=== PATIENT | female | born 1965 | race American Indian/Alaskan Native ===

== ENCOUNTER 2017-12-07 18:34 | Emergency (ER) | payer SELFPAY ==
[2017-12-07] MEDS ORDERED: ASPIRIN PO ONE (19:53)
[2017-12-07 20:29] LABS: Basophils % (Auto) 0.9 % (0.0-1.8); Eosinophils % (Auto) 1.1 % (0.0-4.3); Hematocrit 35.5 % (30.3-42.9); Hemoglobin 11.6 gm/dl (10.1-14.3); Lymphocytes # (Auto) 1.1 K/mm3 (1.2-5.4); Lymphocytes % (Auto) 25.2 % (13.4-35.0); Mean Corpuscular HGB Conc 33 % (30-34); Mean Corpuscular Volume 79 fl (79-97); Monocytes # (Auto) 0.7 K/mm3 (0.0-0.8); Monocytes % (Auto) 14.9 % (0.0-7.3); Platelet Count 222 K/mm3 (140-440); Red Blood Count 4.49 M/mm3 (3.65-5.03); Red Cell Distribution Width 15.4 % (13.2-15.2)
[2017-12-07 20:33] LABS: Mean Corpuscular Hemoglobin 26 pg (28-32)
[2017-12-07] MEDS ORDERED: TYLENOL PO ONE (20:53)
--- NOTE | 2017-12-07 20:53 | Emergency Department Report ---
ED Shortness of Breath HPI - General Chief Complaint: Upper Respiratory Infection Stated Complaint: FLU LIKE SYMPTOMS Time Seen by Provider: 12/07/17 20:28 Source: patient Mode of arrival: Ambulatory Limitations: No Limitations - History of Present Illness Initial Comments: Patient is 51 years old female history of hypertension and brain aneurysm. Presented to the ER with 3 day history of cough and shortness of breath and fever. Patient stated that her grandson son has same symptoms few days ago. She denied any chest pain, no nausea no vomiting no diarrhea. MD Complaint: shortness of breath, cough -: days(s) Severity: moderate Context: recent URI Associated Symptoms: fever, cough Treatments Prior to Arrival: none - Related Data Allergies Allergy/AdvReac Type Severity Reaction Status Date / Time aspirin Allergy Hives Verified 12/07/17 19:51 ED Review of Systems ROS: Stated complaint: FLU LIKE SYMPTOMS Other details as noted in HPI Comment: All other systems reviewed and negative Constitutional: chills, fever Respiratory: cough, shortness of breath, SOB with exertion, SOB at rest. denies : orthopnea, wheezing Cardiovascular: palpitations. denies: chest pain Gastrointestinal: denies: abdominal pain, nausea, vomiting, diarrhea, constipation, hematemesis Genitourinary: denies: urgency, dysuria, frequency Skin: denies: rash Neurological: denies: headache, weakness, numbness, paresthesias, confusion, abnormal gait ED Past Medical Hx - Past Medical History Previous Medical History?: Yes Hx Hypertension: Yes Hx CVA: Yes Hx Headaches / Migraines: Yes Additional medical history: CHF - Surgical History Past Surgical History?: Yes Hx Coronary Stent: Yes Additional Surgical History: thyroid removal - Social History Smoking Status: Current Every Day Smoker Substance Use Type: None ED Physical Exam - General Limitations: No Limitations General appearance: alert, in no apparent distress - Head Head exam: Present: atraumatic, normocephalic, normal inspection - Eye Eye exam: Present: normal appearance, PERRL - ENT ENT exam: Present: normal exam, normal orophraynx, mucous membranes moist - Neck Neck exam: Present: normal inspection, full ROM. Absent: tenderness, meningismus, lymphadenopathy, thyromegaly - Respiratory Respiratory exam: Present: normal lung sounds bilaterally. Absent: respiratory distress, wheezes, rales, rhonchi, stridor, chest wall tenderness, accessory muscle use, decreased breath sounds, prolonged expiratory - Cardiovascular Cardiovascular Exam: Present: regular rate, normal rhythm, normal heart sounds - GI/Abdominal GI/Abdominal exam: Present: soft, normal bowel sounds. Absent: distended, tenderness, guarding, rebound, rigid, organomegaly, mass, bruit, pulsatile mass , hernia - Extremities Exam Extremities exam: Present: normal inspection, full ROM, normal capillary refill - Back Exam Back exam: Present: normal inspection, full ROM. Absent: tenderness, CVA tenderness (R), CVA tenderness (L), muscle spasm, paraspinal tenderness, vertebral tenderness - Neurological Exam Neurological exam: Present: alert, oriented X3, CN II-XII intact, normal gait, reflexes normal. Absent: motor sensory deficit - Skin Skin exam: Present: warm, intact, normal color. Absent: cyanosis, diaphoretic, erythema ED Course Vital Signs 12/07/17 12/07/17 12/07/17 19:46 21:30 22:02 Temperature 101.3 F H Pulse Rate 105 H 103 H Respiratory 19 19 18 Rate Blood Pressure 162/95 142/88 O2 Sat by Pulse 97 98 Oximetry 12/07/17 22:03 Temperature 101.3 F H Pulse Rate Respiratory Rate Blood Pressure O2 Sat by Pulse Oximetry - Reevaluation(s) Reevaluation #1: 12/07/17 23:21 Patient stated that she is feeling much better. Vital signs stable with an oxygen saturation of 98% on room air. Patient had influenza B test is positive treated his Tamiflu here in the ER. Provided prescription for Tamiflu for the next 5 days and advised patient to follow-up with a primary care physician in the next 2-3 days. I also advised the patient to return to the ER if symptoms and are not improving or getting worse. ED Medical Decision Making - Lab Data Result diagrams: 12/07/17 20:17 12/07/17 20:17 - EKG Data -: EKG Interpreted by Me EKG shows normal: sinus rhythm Rate: tachycardia - EKG Data Interpretation: no acute changes - Radiology Data Radiology results: report reviewed - Medical Decision Making Referring Physician: DAGMAR VILLAFUERTE Patient Name: WILLA MARTINEZ Date of : 1965 Sex: Female Report Date: 2017-12-07 Report Status: Finalized Findings [facility] [address] [place] [address] XRay Report Signed Patient: WILLA MARTINEZ MR#: [id number] : 1965 Acct:[id number] Age/Sex: 51 / F ADM Date: 12/07/17 Loc: ED Attending Dr: Ordering Physician: DAGMAR VILLAFUERTE Date of Service: 12/07/17 Procedure(s): XR chest routine 2V Accession Number(s): [id number] cc: DAGMAR VILLAFUERTE Fluoro Time In Minutes: FINAL REPORT PROCEDURE: XR CHEST ROUTINE 2V TECHNIQUE: PA and lateral chest radiographs were obtained. CPT 91433 HISTORY: shortness of breath COMPARISON: No prior studies are available for comparison. FINDINGS: Heart: Borderline enlarged.. Mediastinum/Vessels: Normal. Lungs/Pleural space: There are faint multifocal infiltrates bilaterally. Lungs are well-expanded. There is no effusion or pneumothorax.. Bony thorax: No acute osseous abnormality. Other: IMPRESSION: Heart is borderline enlarged. There are faint multifocal infiltrates bilaterally. Lungs are well-expanded. There is no effusion or pneumothorax.. Transcribed By: CO Dictated By: TAMARA DSOUZA MD Electronically Authenticated By: TAMARA DSOUZA MD Signed Date/Time: 12/07/171723 DD/ 23 TD/TT: 12/07/171723 Critical care attestation.: If time is entered above; I have spent that time in minutes in the direct care of this critically ill patient, excluding procedure time. ED Disposition Clinical Impression: Shortness of breath, Influenza Disposition: DC-01 TO HOME OR SELFCARE Is pt being admited?: No Condition: Stable Instructions: Influenza (ED)
[2017-12-07 20:55] LABS: BUN/Creatinine Ratio 11; Blood Urea Nitrogen 8 mg/dL (7-17); Calcium 8.5 mg/dL (8.4-10.2); Hemolysis Index 10
[2017-12-07 21:10] LABS: Chol/HDL Ratio 3.53 %
--- NOTE | 2017-12-07 21:26 | XRay Report ---
FINAL REPORT PROCEDURE: XR CHEST ROUTINE 2V TECHNIQUE: PA and lateral chest radiographs were obtained. CPT 02946 HISTORY: shortness of breath COMPARISON: No prior studies are available for comparison. FINDINGS: Heart: Borderline enlarged.. Mediastinum/Vessels: Normal. Lungs/Pleural space: There are faint multifocal infiltrates bilaterally. Lungs are well-expanded. There is no effusion or pneumothorax.. Bony thorax: No acute osseous abnormality. Other: IMPRESSION: Heart is borderline enlarged. There are faint multifocal infiltrates bilaterally. Lungs are well-expanded. There is no effusion or pneumothorax..
[2017-12-07 22:03] VITALS: BP 142/88
[2017-12-07] MEDS ORDERED: TORADOL ONE (22:20)
[2017-12-07] MEDS ORDERED: TORADOL IV ONE (22:22)
[2017-12-07] MEDS ORDERED: TAMIFLU PO ONE (23:00)
== END 2017-12-08 01:19 | disposition home or self-care (01) ==
LOC: ED 18:34
DX: J11.1 Influenza due to unidentified influenza virus with other respiratory manifestations (principal); R06.02 Shortness of breath; I11.0 Hypertensive heart disease with heart failure; I50.9 Heart failure, unspecified; G43.909 Migraine, unspecified, not intractable, without status migrainosus; F17.200 Nicotine dependence, unspecified, uncomplicated; E89.0 Postprocedural hypothyroidism; Z88.6 Allergy status to analgesic agent
CPT/HCPCS: 36415; 71046; 80048; 80061; 82140; 84484; 85025; 87040; 87400; 93005; 93010; 96374; 99284; J1885

== ENCOUNTER 2018-01-01 01:59 | Emergency (ER) | payer SELFPAY ==
[2018-01-01 03:28] LABS: Basophils # (Auto) 0.1 K/mm3 (0.0-0.1); Basophils % (Auto) 0.9 % (0.0-1.8); Eosinophils # (Auto) 0.2 K/mm3 (0.0-0.4); Eosinophils % (Auto) 2.2 % (0.0-4.3); Hematocrit 33.4 % (30.3-42.9); Lymphocytes # (Auto) 2.9 K/mm3 (1.2-5.4); Lymphocytes % (Auto) 37.6 % (13.4-35.0); Mean Corpuscular HGB Conc 33 % (30-34); Mean Corpuscular Hemoglobin 26 pg (28-32); Mean Corpuscular Volume 79 fl (79-97); Monocytes # (Auto) 0.6 K/mm3 (0.0-0.8); Monocytes % (Auto) 8.2 % (0.0-7.3); Platelet Count 227 K/mm3 (140-440); Red Cell Distribution Width 15.2 % (13.2-15.2)
[2018-01-01 03:39] LABS: BUN/Creatinine Ratio 17; Blood Urea Nitrogen 10 mg/dL (7-17); Calcium 8.7 mg/dL (8.4-10.2); Hemolysis Index 4
[2018-01-01 03:50] LABS: INR 1.05 (0.87-1.13)
[2018-01-01 03:51] LABS: Partial Thromboplastin Time 29.1 Sec. (24.2-36.6)
--- NOTE | 2018-01-01 03:52 | XRay Report ---
FINAL REPORT PROCEDURE: XR CHEST ROUTINE 2V TECHNIQUE: PA and lateral chest radiographs were obtained. CPT 85391 HISTORY: Shortness of breath COMPARISON: 12/07/2017 FINDINGS: Heart: The heart is enlarged. Mediastinum/Vessels: Normal. Lungs/Pleural space: Lungs are moderately well-expanded. There is pulmonary vascular congestion and mild pulmonary edema. There are no infiltrates, effusions or pneumothoraces.. Bony thorax: No acute osseous abnormality. Other: IMPRESSION: The heart is enlarged. Lungs are moderately well-expanded. There is pulmonary vascular congestion and mild pulmonary edema. There are no infiltrates, effusions or pneumothoraces.. .
--- NOTE | 2018-01-01 06:18 | Emergency Department Report ---
ED General Adult HPI - General Chief complaint: Dyspnea/Respdistress Stated complaint: SOB Time Seen by Provider: 01/01/18 06:04 Source: patient Mode of arrival: Ambulatory Limitations: No Limitations - History of Present Illness Initial comments: Ms. Lopes is a pleasant female with hx of CHF. She presents with cough and nasal congestion. She was evaluated in the ED two weeks prior. She was given Tamiflu and guafenesin with codeine. She still has a deep cough. Mild pedal edema. She is taking "high dose" diuretics. No chest pain. +subjective fever with sweats. No dx of COPD in spite hx of tobacco use. Mrs. Lopes was formerly a patient of the [facility]. 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 -: week(s) (2) Severity scale (0 -10): 5 Worsens with: other (cough worsens with inspiration, ) Associated Symptoms: other (deep cough causes bladder and fecal incontinence) - Related Data Previous Rx's Medication Instructions Recorded Last Taken Type Oseltamivir [Tamiflu] 75 mg PO BID #10 cap 12/07/17 Unknown Rx guaiFENesin/CODEINE [Robitussin AC] 10 ml PO TID PRN #100 ml 12/07/17 Unknown Rx ALBUTEROL Inhaler [ProAir HFA 2 puff IH QID PRN #1 device 01/01/18 Unknown Rx Inhaler] Doxycycline Hyclate [Doxycycline 100 mg PO Q12HR 10 Days #20 tab 01/01/18 Unknown Rx Hyclate TAB] Prednisone [predniSONE 10 mg 10 mg PO .TAPER #1 tab.ds.pk 01/01/18 Unknown Rx (6-Day Pack, 21 Tabs)] Allergies Allergy/AdvReac Type Severity Reaction Status Date / Time aspirin Allergy Hives Verified 12/07/17 19:51 ED Review of Systems ROS: Stated complaint: SOB Other details as noted in HPI Comment: All other systems reviewed and negative ED Past Medical Hx - Past Medical History Previous Medical History?: Yes Hx Hypertension: Yes Hx CVA: Yes (2015) Hx Congestive Heart Failure: Yes Hx Headaches / Migraines: Yes Additional medical history: brain aneurysm x2 - Surgical History Past Surgical History?: Yes Hx Coronary Stent: Yes Additional Surgical History: thyroid removal, open heart sx 1971 - Social History Smoking Status: Current Every Day Smoker Substance Use Type: None - Medications Home Medications: Home Medications Medication Instructions Recorded Confirmed Last Taken Type Oseltamivir [Tamiflu] 75 mg PO BID #10 cap 12/07/17 Unknown Rx guaiFENesin/CODEINE [Robitussin AC] 10 ml PO TID PRN #100 ml 12/07/17 Unknown Rx ALBUTEROL Inhaler [ProAir HFA 2 puff IH QID PRN #1 device 01/01/18 Unknown Rx Inhaler] Doxycycline Hyclate [Doxycycline 100 mg PO Q12HR 10 Days #20 tab 01/01/18 Unknown Rx Hyclate TAB] Prednisone [predniSONE 10 mg 10 mg PO .TAPER #1 tab.ds.pk 01/01/18 Unknown Rx (6-Day Pack, 21 Tabs)] ED Physical Exam - General Limitations: No Limitations General appearance: alert, in no apparent distress, other (frequent cough noted) - Head Head exam: Present: atraumatic, normocephalic - Eye Eye exam: Present: normal appearance - ENT ENT exam: Present: normal orophraynx, mucous membranes moist - Neck Neck exam: Present: normal inspection. Absent: meningismus - Respiratory Respiratory exam: Present: normal lung sounds bilaterally, rales. Absent: respiratory distress, wheezes, rhonchi, stridor - Cardiovascular Cardiovascular Exam: Present: regular rate, normal rhythm, normal heart sounds. Absent: bradycardia, tachycardia, systolic murmur, diastolic murmur, rubs, gallop - GI/Abdominal GI/Abdominal exam: Present: soft, normal bowel sounds. Absent: distended, tenderness, guarding, rebound - Extremities Exam Extremities exam: Present: normal inspection. Absent: pedal edema - Back Exam Back exam: Present: normal inspection - Neurological Exam Neurological exam: Present: alert, oriented X3 - Psychiatric Psychiatric exam: Present: normal affect, normal mood - Skin Skin exam: Present: warm, dry, intact, normal color. Absent: rash ED Course Vital Signs 01/01/18 01/01/18 01/01/18 02:59 03:21 03:28 Temperature 98.2 F 98.2 F Pulse Rate 98 H 100 H 103 H Respiratory 18 17 20 Rate Blood Pressure 168/86 Blood Pressure 148/86 [Left] O2 Sat by Pulse 98 75 L 96 Oximetry 01/01/18 01/01/18 01/01/18 03:30 03:46 04:00 Temperature Pulse Rate 104 H 91 H 94 H Respiratory 24 18 20 Rate Blood Pressure 148/86 148/86 148/86 Blood Pressure [Left] O2 Sat by Pulse 80 L 97 97 Oximetry 01/01/18 01/01/18 01/01/18 04:16 04:30 04:46 Temperature Pulse Rate 103 H 94 H 97 H Respiratory 20 26 H 31 H Rate Blood Pressure 148/86 148/86 148/86 Blood Pressure [Left] O2 Sat by Pulse 95 94 96 Oximetry 01/01/18 01/01/18 01/01/18 05:08 05:16 05:30 Temperature Pulse Rate Respiratory Rate Blood Pressure 148/86 148/86 148/86 Blood Pressure [Left] O2 Sat by Pulse 99 95 95 Oximetry 01/01/18 01/01/18 01/01/18 05:46 06:00 06:16 Temperature Pulse Rate Respiratory Rate Blood Pressure 148/86 148/86 148/86 Blood Pressure [Left] O2 Sat by Pulse 97 95 99 Oximetry 01/01/18 01/01/18 01/01/18 06:30 06:46 07:33 Temperature 98 F Pulse Rate 93 H Respiratory 22 Rate Blood Pressure 148/86 150/90 Blood Pressure 150/91 [Left] O2 Sat by Pulse 97 99 97 Oximetry 01/01/18 01/01/18 07:36 07:46 Temperature Pulse Rate 95 H 103 H Respiratory 25 H 17 Rate Blood Pressure 150/90 163/94 Blood Pressure [Left] O2 Sat by Pulse Oximetry ED Medical Decision Making - Lab Data Result diagrams: 01/01/18 03:14 01/01/18 03:14 Laboratory Results - last 24 hr 01/01/18 01/01/18 01/01/18 03:14 03:14 03:14 WBC RBC Hgb Hct MCV MCH MCHC RDW Plt Count Lymph % (Auto) [place] % (Auto) Eos % (Auto) Baso % (Auto) Lymph # [place] # Eos # Baso # Seg Neutrophils % Seg Neutrophils # PT 14.2 INR 1.05 APTT 29.1 Sodium 143 Potassium 4.0 Chloride 104.4 Carbon Dioxide 28 Anion Gap 15 BUN 10 Creatinine 0.6 L Estimated GFR > 60 BUN/Creatinine Ratio 17 Glucose 109 H Calcium 8.7 NT-Pro-B Natriuret Pep HCG, Qual Negative 01/01/18 01/01/18 03:14 03:14 WBC 7.7 RBC 4.20 Hgb 11.0 Hct 33.4 MCV 79 MCH 26 L MCHC 33 RDW 15.2 Plt Count 227 Lymph % (Auto) 37.6 H [place] % (Auto) 8.2 H Eos % (Auto) 2.2 Baso % (Auto) 0.9 Lymph # 2.9 [place] # 0.6 Eos # 0.2 Baso # 0.1 Seg Neutrophils % 51.1 Seg Neutrophils # 3.9 PT INR APTT Sodium Potassium Chloride Carbon Dioxide Anion Gap BUN Creatinine Estimated GFR BUN/Creatinine Ratio Glucose Calcium NT-Pro-B Natriuret Pep 491.6 HCG, Qual Vital Signs - 24 hr 01/01/18 01/01/18 01/01/18 02:59 03:21 03:28 Temperature 98.2 F 98.2 F Pulse Rate 98 H 100 H 103 H Respiratory 18 17 20 Rate Blood Pressure 168/86 Blood Pressure 148/86 [Left] O2 Sat by Pulse 98 75 L 96 Oximetry - EKG Data -: EKG Interpreted by Me - EKG Data 01/01/18 06:19 EKG obtained a 254 Normal sinus rhythm rate of 90 bpm normal axis normal intervals no ST-T signs of ischemia - Radiology Data Radiology results: report reviewed Mild pulmonary vascular congestion without infiltrate - Medical Decision Making Mrs. Lopes presents with acute bronchitis after influenza without signs of pneumonia. She also has mild CHF exacerbation according to lung exam and chest x-ray. She received IV furosemide, DuoNeb prednisone and doxycycline ED. I will prescribe: Combivent MDI, prednisone, doxycycline. Considering severe symptoms and tobacco abuse, antibiotics are indicated in this scenario of acute bronchitis. Critical care attestation.: If time is entered above; I have spent that time in minutes in the direct care of this critically ill patient, excluding procedure time. ED Disposition Clinical Impression: Acute bronchitis, Acute exacerbation of CHF (congestive heart failure) Disposition: TO HOME OR SELFCARE Is pt being admited?: No Does the pt Need Aspirin: No Condition: Stable Instructions: How to Stop Smoking (ED), Acute Bronchitis (ED) Prescriptions: ALBUTEROL Inhaler [ProAir HFA Inhaler] 2 puff IH QID PRN #1 device PRN Reason: Shortness Of Breath Doxycycline Hyclate [Doxycycline Hyclate TAB] 100 mg PO Q12HR 10 Days #20 tab Prednisone [predniSONE 10 mg (6-Day Pack, 21 Tabs)] 10 mg PO .TAPER #1 tab.ds.pk Referrals: TAYLOR GELLER MD [Primary Care Provider] - 3-5 Days [facility] [Outside] - 3-5 Days Time of Disposition: 09:00
[2018-01-01] MEDS ORDERED: VIBRAMYCIN PO ONE (06:22)
[2018-01-01] MEDS ORDERED: DUONEB *Not for PRN Use IH ONE (06:22)
[2018-01-01] MEDS ORDERED: LASIX IV ONE (06:22)
[2018-01-01] MEDS ORDERED: DELTASONE PO ONE (06:22)
[2018-01-01 09:23] VITALS: BP 154/96
== END 2018-01-01 09:24 | disposition home or self-care (01) ==
LOC: ED 01:59
DX: J20.9 Acute bronchitis, unspecified (principal); I50.9 Heart failure, unspecified; I10 Essential (primary) hypertension; Z86.73 Personal history of transient ischemic attack (TIA), and cerebral infarction without residual deficits; G43.909 Migraine, unspecified, not intractable, without status migrainosus; F17.200 Nicotine dependence, unspecified, uncomplicated; Z88.6 Allergy status to analgesic agent; Z95.818 Presence of other cardiac implants and grafts
CPT/HCPCS: 36415; 71046; 80048; 83880; 84703; 85025; 85610; 85730; 93005; 93010; 94640; 96374; 99284; J1940; J7512

== ENCOUNTER 2018-02-06 02:29 | Emergency (ER) | payer SELFPAY ==
[2018-02-06] MEDS ORDERED: DUONEB *Not for PRN Use IH ONE ×2 (03:18→03:34)
[2018-02-06 03:50] LABS: Basophils # (Auto) 0.1 K/mm3 (0.0-0.1); Basophils % (Auto) 1.4 % (0.0-1.8); Eosinophils # (Auto) 0.1 K/mm3 (0.0-0.4); Eosinophils % (Auto) 1.7 % (0.0-4.3); Hematocrit 33.4 % (30.3-42.9); Hemoglobin 11.1 gm/dl (10.1-14.3); Lymphocytes # (Auto) 3.1 K/mm3 (1.2-5.4); Lymphocytes % (Auto) 42.9 % (13.4-35.0); Mean Corpuscular HGB Conc 33 % (30-34); Mean Corpuscular Hemoglobin 26 pg (28-32); Mean Corpuscular Volume 78 fl (79-97); Monocytes # (Auto) 0.5 K/mm3 (0.0-0.8); Monocytes % (Auto) 6.2 % (0.0-7.3); Platelet Count 254 K/mm3 (140-440); Red Blood Count 4.28 M/mm3 (3.65-5.03); Red Cell Distribution Width 15.7 % (13.2-15.2)
--- NOTE | 2018-02-06 04:04 | XRay Report ---
FINAL REPORT PROCEDURE: XR CHEST ROUTINE 2V TECHNIQUE: PA and lateral chest radiographs were obtained. CPT 17747 HISTORY: Shortness of breath COMPARISON: 01/01/2018 FINDINGS: Heart: Heart size is slightly pronounced but stable. Mediastinum/Vessels: Normal. Lungs/Pleural space: There is atelectasis in both lower lungs. Mild vascular congestion.. Bony thorax: No acute osseous abnormality. Other: IMPRESSION: Mild CHF with slight atelectasis bilateral lower lungs.
[2018-02-06 04:07] LABS: BUN/Creatinine Ratio 18; Blood Urea Nitrogen 11 mg/dL (7-17); Calcium 8.8 mg/dL (8.4-10.2); Hemolysis Index 8
[2018-02-06] MEDS ORDERED: LASIX IV ONE (05:07)
--- NOTE | 2018-02-06 05:48 | Emergency Department Report ---
<LAVELLE SAHA - Last Filed: 02/06/18 05:46> ED Shortness of Breath HPI - General Chief Complaint: Dyspnea/Respdistress Stated Complaint: SOB Time Seen by Provider: 02/06/18 04:47 Source: patient Mode of arrival: Ambulatory Limitations: No Limitations - History of Present Illness Initial Comments: Patient is a 52-year-old black female who has a history of asthma and congestive heart failure who is presenting with 6 days of difficulty in breathing. Patient states that she is more short of breath with exertion. Patient states she's had a very mild cough is nonproductive. Patient also states that sometimes she has a little bit of chest discomfort as well she rates his chest discomfort is tightness and has had some wheezing. Patient is out of her albuterol inhaler. Patient does state she is taking all of her other medications at this time. Patient denies any fevers chills nausea vomiting diarrhea. - Related Data Previous Rx's Medication Instructions Recorded Last Taken Type Oseltamivir [Tamiflu] 75 mg PO BID #10 cap 12/07/17 Unknown Rx guaiFENesin/CODEINE [Robitussin AC] 10 ml PO TID PRN #100 ml 12/07/17 Unknown Rx Doxycycline Hyclate [Doxycycline 100 mg PO Q12HR 10 Days #20 tab 01/01/18 Unknown Rx Hyclate TAB] ALBUTEROL Inhaler [ProAir HFA 2 puff IH QID PRN #1 device 02/06/18 Unknown Rx Inhaler] Clopidogrel [Plavix] 75 mg PO QDAY #30 tablet 02/06/18 Unknown Rx Metoprolol [Lopressor TAB] 50 mg PO BID #60 tablet 02/06/18 Unknown Rx predniSONE [Deltasone] 40 mg PO QDAY 5 Days tab 02/06/18 Unknown Rx Allergies Allergy/AdvReac Type Severity Reaction Status Date / Time aspirin Allergy Hives Verified 12/07/17 19:51 ED Review of Systems ROS: Stated complaint: SOB Other details as noted in HPI Comment: All other systems reviewed and negative ED Past Medical Hx - Past Medical History Hx Hypertension: Yes Hx CVA: Yes (2015) Hx Congestive Heart Failure: Yes Hx Headaches / Migraines: Yes Additional medical history: brain aneurysm x2 - Surgical History Hx Coronary Stent: Yes Additional Surgical History: thyroid removal, open heart sx 1971 - Social History Smoking Status: Current Every Day Smoker Substance Use Type: None - Medications Home Medications: Home Medications Medication Instructions Recorded Confirmed Last Taken Type Oseltamivir [Tamiflu] 75 mg PO BID #10 cap 12/07/17 Unknown Rx guaiFENesin/CODEINE [Robitussin AC] 10 ml PO TID PRN #100 ml 12/07/17 Unknown Rx Doxycycline Hyclate [Doxycycline 100 mg PO Q12HR 10 Days #20 tab 01/01/18 Unknown Rx Hyclate TAB] ALBUTEROL Inhaler [ProAir HFA 2 puff IH QID PRN #1 device 02/06/18 Unknown Rx Inhaler] Clopidogrel [Plavix] 75 mg PO QDAY #30 tablet 02/06/18 Unknown Rx Metoprolol [Lopressor TAB] 50 mg PO BID #60 tablet 02/06/18 Unknown Rx predniSONE [Deltasone] 40 mg PO QDAY 5 Days tab 02/06/18 Unknown Rx ED Physical Exam - General Limitations: No Limitations General appearance: alert, in no apparent distress - Head Head exam: Present: atraumatic, normocephalic - Eye Eye exam: Present: normal appearance - ENT ENT exam: Present: mucous membranes moist - Neck Neck exam: Present: normal inspection - Respiratory Respiratory exam: Present: normal lung sounds bilaterally, rales. Absent: respiratory distress, wheezes, rhonchi - Cardiovascular Cardiovascular Exam: Present: regular rate, normal rhythm. Absent: systolic murmur, diastolic murmur, rubs, gallop - GI/Abdominal GI/Abdominal exam: Present: soft, normal bowel sounds. Absent: distended, tenderness, guarding, rebound - Extremities Exam Extremities exam: Present: normal inspection - Back Exam Back exam: Present: normal inspection - Neurological Exam Neurological exam: Present: alert, oriented X3 - Psychiatric Psychiatric exam: Present: normal affect, normal mood - Skin Skin exam: Present: warm, dry, intact, normal color. Absent: rash ED Course Vital Signs 02/06/18 02/06/18 02/06/18 03:26 05:05 05:30 Temperature 98.6 F 97.9 F Pulse Rate 54 L 94 H Respiratory 20 22 Rate Blood Pressure 133/91 139/99 Blood Pressure 155/103 [Right] O2 Sat by Pulse 98 99 99 Oximetry ED Medical Decision Making - Lab Data Result diagrams: 02/06/18 03:38 02/06/18 03:38 Lab Results 02/06/18 02/06/18 02/06/18 Range/Units 03:38 03:38 03:38 WBC 7.3 (4.5-11.0) K/mm3 RBC 4.28 (3.65-5.03) M/mm3 Hgb 11.1 (10.1-14.3) gm/dl Hct 33.4 (30.3-42.9) % MCV 78 L (79-97) fl MCH 26 L (28-32) pg MCHC 33 (30-34) % RDW 15.7 H (13.2-15.2) % Plt Count 254 (140-440) K/mm3 Lymph % (Auto) 42.9 H (13.4-35.0) % [place] % (Auto) 6.2 (0.0-7.3) % Eos % (Auto) 1.7 (0.0-4.3) % Baso % (Auto) 1.4 (0.0-1.8) % Lymph # 3.1 (1.2-5.4) K/mm3 [place] # 0.5 (0.0-0.8) K/mm3 Eos # 0.1 (0.0-0.4) K/mm3 Baso # 0.1 (0.0-0.1) K/mm3 Seg Neutrophils % 47.8 (40.0-70.0) % Seg Neutrophils # 3.5 (1.8-7.7) K/mm3 Sodium 142 (137-145) mmol/L Potassium 4.0 (3.6-5.0) mmol/L Chloride 103.2 (98-107) mmol/L Carbon Dioxide 27 (22-30) mmol/L Anion Gap 16 mmol/L BUN 11 (7-17) mg/dL Creatinine 0.6 L (0.7-1.2) mg/dL Estimated GFR > 60 ml/min BUN/Creatinine Ratio 18 % Glucose 104 H (65-100) mg/dL Calcium 8.8 (8.4-10.2) mg/dL Troponin T < 0.010 (0.00-0.029) ng/mL NT-Pro-B Natriuret Pep (0-900) pg/mL HCG, Qual Negative (Negative) 02/06/18 Range/Units 03:38 WBC (4.5-11.0) K/mm3 RBC (3.65-5.03) M/mm3 Hgb (10.1-14.3) gm/dl Hct (30.3-42.9) % MCV (79-97) fl MCH (28-32) pg MCHC (30-34) % RDW (13.2-15.2) % Plt Count (140-440) K/mm3 Lymph % (Auto) (13.4-35.0) % [place] % (Auto) (0.0-7.3) % Eos % (Auto) (0.0-4.3) % Baso % (Auto) (0.0-1.8) % Lymph # (1.2-5.4) K/mm3 [place] # (0.0-0.8) K/mm3 Eos # (0.0-0.4) K/mm3 Baso # (0.0-0.1) K/mm3 Seg Neutrophils % (40.0-70.0) % Seg Neutrophils # (1.8-7.7) K/mm3 Sodium (137-145) mmol/L Potassium (3.6-5.0) mmol/L Chloride (98-107) mmol/L Carbon Dioxide (22-30) mmol/L Anion Gap mmol/L BUN (7-17) mg/dL Creatinine (0.7-1.2) mg/dL Estimated GFR ml/min BUN/Creatinine Ratio % Glucose (65-100) mg/dL Calcium (8.4-10.2) mg/dL Troponin T (0.00-0.029) ng/mL NT-Pro-B Natriuret Pep 803.1 (0-900) pg/mL HCG, Qual (Negative) - EKG Data -: EKG Interpreted by [place] - EKG Data Interpretation: other (EKG shows sinus rhythm rate of 92 mile axis normal and also notice ST segment elevations or depressions time of interpretation is 354) - Radiology Data Radiology results: report reviewed Chest x-ray shows changes consistent with a mild CHF exacerbation - Medical Decision Making Patient is a 52-year-old female who presents with shortness of breath. Patient received a nebulizer treatment at triage states her shortness of breath slightly improved. On my initial exam patient does have some rails was given a dose of Lasix will be reevaluated Critical care attestation.: If time is entered above; I have spent that time in minutes in the direct care of this critically ill patient, excluding procedure time. ED Disposition Clinical Impression: Asthma exacerbation, CHF exacerbation, Medicine refill, Obesity Disposition: DC-01 TO HOME OR SELFCARE Condition: Stable Instructions: Asthma (ED), Heart Failure (ED) Additional Instructions: Take the medication as prescribed and return if symptoms worsen. Follow up with your primary care doctor or the doctor provided Prescriptions: ALBUTEROL Inhaler [ProAir HFA Inhaler] 2 puff IH QID PRN #1 device PRN Reason: Shortness Of Breath Clopidogrel [Plavix] 75 mg PO QDAY #30 tablet Metoprolol [Lopressor TAB] 50 mg PO BID #60 tablet predniSONE [Deltasone] 40 mg PO QDAY 5 Days tab Referrals: TAYLOR GELLER MD [Primary Care Provider] - 3-5 Days [facility] [Provider Group] - 3-5 Days (medical clinic) <VIKI LAU - Last Filed: 02/06/18 07:07> ED Medical Decision Making - Lab Data Result diagrams: 02/06/18 03:38 02/06/18 03:38 - Medical Decision Making Received signout from Dr. Saha is to reassess patient after IV Lasix. Patient had multiple episodes of diuresis. Patient states she is feeling better and no longer complains of shortness of breath and tolerates exertion. Patient requesting a refill in her metoprolol 50 mg twice a day, albuterol inhaler, and Plavix. She states she has Lasix at home. steroids for asthma exacerbation will be provided ED Disposition Is pt being admited?: No Does the pt Need Aspirin: No Time of Disposition: 07:06
[2018-02-06 05:49] VITALS: BP 139/99
== END 2018-02-06 07:20 | disposition home or self-care (01) ==
LOC: ED 02:29
DX: J45.901 Unspecified asthma with (acute) exacerbation (principal); I11.0 Hypertensive heart disease with heart failure; I50.9 Heart failure, unspecified; G43.909 Migraine, unspecified, not intractable, without status migrainosus; F17.200 Nicotine dependence, unspecified, uncomplicated; E89.0 Postprocedural hypothyroidism; E66.9 Obesity, unspecified; Z68.42 Body mass index [BMI] 45.0-49.9, adult; Z95.818 Presence of other cardiac implants and grafts; Z88.6 Allergy status to analgesic agent
CPT/HCPCS: 36415; 71046; 80048; 83880; 84484; 84703; 85025; 93005; 93010; 94640; 96374; 99284; J1940

== ENCOUNTER 2018-03-03 03:35 | Emergency (ER) | payer SELFPAY ==
[2018-03-03 03:47] VITALS: BP 153/92
[2018-03-03] MEDS ORDERED: DUONEB *Not for PRN Use IH ONE (04:54)
--- NOTE | 2018-03-03 05:32 | XRay Report ---
FINAL REPORT PROCEDURE: XR CHEST ROUTINE 2V TECHNIQUE: PA and lateral chest radiographs were obtained. CPT 57167 HISTORY: shortness of breath COMPARISON: 02/06/2018 FINDINGS: Heart: Normal. Mediastinum/Vessels: Normal. Lungs/Pleural space: Mild vascular congestion with slight atelectasis bilateral lower lungs. No effusion or pneumothorax. Bony thorax: No acute osseous abnormality. Other: IMPRESSION: Mild vascular congestion with slight atelectasis in the bilateral lower lungs..
[2018-03-03 06:04] LABS: Basophils % (Auto) 0.4 % (0.0-1.8); Eosinophils # (Auto) 0.1 K/mm3 (0.0-0.4); Eosinophils % (Auto) 1.1 % (0.0-4.3); Hematocrit 33.9 % (30.3-42.9); Hemoglobin 11.1 gm/dl (10.1-14.3); Lymphocytes # (Auto) 3.5 K/mm3 (1.2-5.4); Lymphocytes % (Auto) 40.6 % (13.4-35.0); Mean Corpuscular HGB Conc 33 % (30-34); Mean Corpuscular Hemoglobin 26 pg (28-32); Mean Corpuscular Volume 80 fl (79-97); Monocytes # (Auto) 0.7 K/mm3 (0.0-0.8); Monocytes % (Auto) 8.3 % (0.0-7.3); Platelet Count 239 K/mm3 (140-440); Red Blood Count 4.25 M/mm3 (3.65-5.03)
[2018-03-03 06:05] LABS: INR 1.05 (0.87-1.13)
[2018-03-03 06:06] LABS: BUN/Creatinine Ratio 15; Blood Urea Nitrogen 9 mg/dL (7-17); Calcium 8.9 mg/dL (8.4-10.2); Hemolysis Index 1; Partial Thromboplastin Time 26.9 Sec. (24.2-36.6)
== END 2018-03-03 07:10 | disposition left against medical advice (07) ==
LOC: ED 03:35
DX: R06.02 Shortness of breath (principal); Z53.21 Procedure and treatment not carried out due to patient leaving prior to being seen by health care provider
CPT/HCPCS: 36415; 71046; 80048; 84484; 85025; 85610; 85730; 93005; 93010

== ENCOUNTER 2018-03-05 08:50 | Inpatient (IN) | payer OTHER ==
[2018-03-05 09:35] LABS: Basophils % (Auto) 0.7 % (0.0-1.8); Eosinophils # (Auto) 0.1 K/mm3 (0.0-0.4); Eosinophils % (Auto) 1.9 % (0.0-4.3); Hematocrit 34.3 % (30.3-42.9); Hemoglobin 11.2 gm/dl (10.1-14.3); Lymphocytes # (Auto) 2.9 K/mm3 (1.2-5.4); Lymphocytes % (Auto) 43.5 % (13.4-35.0); Mean Corpuscular HGB Conc 33 % (30-34); Mean Corpuscular Hemoglobin 26 pg (28-32); Mean Corpuscular Volume 80 fl (79-97); Monocytes # (Auto) 0.6 K/mm3 (0.0-0.8); Monocytes % (Auto) 9.5 % (0.0-7.3); Platelet Count 234 K/mm3 (140-440); Red Blood Count 4.29 M/mm3 (3.65-5.03); Red Cell Distribution Width 16.9 % (13.2-15.2)
[2018-03-05 09:51] LABS: BUN/Creatinine Ratio 12; Blood Urea Nitrogen 6 mg/dL (7-17); Calcium 8.7 mg/dL (8.4-10.2); Hemolysis Index 27
[2018-03-05] MEDS ORDERED: LASIX IV ONE (10:55)
[2018-03-05] MEDS ORDERED: NITRO-BID 2% TP ONE (10:56)
--- NOTE | 2018-03-05 11:04 | Emergency Department Report ---
ED Shortness of Breath HPI - General Chief Complaint: Dyspnea/Respdistress Stated Complaint: SHORTNESS OF BREATH Time Seen by Provider: 03/05/18 10:48 Source: patient, old records reviewed (no previous admission a cardiac workup on record) Mode of arrival: Ambulatory Limitations: No Limitations - History of Present Illness Initial Comments: 52-year-old female with past medical history CHF, open heart surgery in 1971 for congenital heart defect, previous CVA, hypertension, and brain aneurysm 2 presents to the hospital complains of significantly worsening shortness of breath 1 month. Positive orthopnea PND reported. Patient has intermittent leg ankle swelling. Dry cough reported. No chest pain. Patient's plying with most of her medications but intermittently taking her Lasix because she trying to make the prescription last longer and she doesn't want to have to urinate all the time. Previously patient had [employer] insurance but since she lost insurance she has not followed up with her primary care doctor or side stitcher. Patient was here on March 03 the left prior to M.D. evaluation due to wait. - Related Data Home Medications Medication Instructions Recorded Confirmed Last Taken Furosemide [Lasix] 20 mg PO BID 03/05/18 03/05/18 Unknown Losartan [Cozaar] 50 mg PO QDAY 03/05/18 03/05/18 03/05/18 Previous Rx's Medication Instructions Recorded Last Taken Type ALBUTEROL Inhaler [ProAir HFA 2 puff IH QID PRN #1 device 02/06/18 Unknown Rx Inhaler] Clopidogrel [Plavix] 75 mg PO QDAY #30 tablet 02/06/18 03/05/18 Rx Metoprolol [Lopressor TAB] 50 mg PO BID #60 tablet 02/06/18 Unknown Rx Allergies Allergy/AdvReac Type Severity Reaction Status Date / Time aspirin Allergy Hives Verified 12/07/17 19:51 strawberry Allergy Swelling Verified 03/03/18 04:41 ED Review of Systems ROS: Stated complaint: SHORTNESS OF BREATH Other details as noted in HPI Comment: All other systems reviewed and negative ED Past Medical Hx - Past Medical History Hx Hypertension: Yes Hx CVA: Yes (2015) Hx Congestive Heart Failure: Yes Hx Headaches / Migraines: Yes Additional medical history: brain aneurysm x2 - Surgical History Hx Coronary Stent: Yes Additional Surgical History: thyroid removal, open heart sx 1971 - Social History Smoking Status: Current Every Day Smoker Substance Use Type: None - Medications Home Medications: Home Medications Medication Instructions Recorded Confirmed Last Taken Type ALBUTEROL Inhaler [ProAir HFA 2 puff IH QID PRN #1 device 02/06/18 03/05/18 Unknown Rx Inhaler] Clopidogrel [Plavix] 75 mg PO QDAY #30 tablet 02/06/18 03/05/18 03/05/18 Rx Metoprolol [Lopressor TAB] 50 mg PO BID #60 tablet 02/06/18 03/05/18 Unknown Rx Furosemide [Lasix] 20 mg PO BID 03/05/18 03/05/18 Unknown History Losartan [Cozaar] 50 mg PO QDAY 03/05/18 03/05/18 03/05/18 History ED Physical Exam - General Limitations: No Limitations - Other Other exam information: General: No limitations, patient is alert in no acute distress Head exam: Atraumatic, normocephalic Eyes exam: Normal appearance, pupils equal reactive to light, extraocular movements intact ENT: Moist mucous membrane, normal oropharynx Neck exam: Normal inspection, full range of motion, no meningismus nontender Respiratory exam: Tachypnea, breathlessness with speaking, bilateral crackles Cardiovascular: Normal rate and rhythm, normal heart sounds Abdomen: Soft, nondistended, and nontender, with normal bowel sounds, no rebound, or guarding Extremity: Full range of motion normal inspection no deformity, no calf tenderness Back: Normal Inspection, full range of motion, no tenderness Neurologic: Alert, oriented x3, cranial nerves intact, no motor or sensory deficit Psychiatric: normal affect, normal mood Skin: Warm, dry, intact ED Course Vital Signs 03/05/18 03/05/18 03/05/18 08:57 11:00 11:03 Temperature 97.8 F Pulse Rate 89 99 H 106 H Respiratory 24 17 18 Rate Blood Pressure 140/104 159/111 Blood Pressure [Right] O2 Sat by Pulse 96 99 99 Oximetry 03/05/18 03/05/18 03/05/18 11:30 11:48 12:00 Temperature Pulse Rate 96 H 84 101 H Respiratory 17 22 14 Rate Blood Pressure 168/101 168/101 Blood Pressure 168/84 [Right] O2 Sat by Pulse 98 Oximetry - Consultations Consultation #1: 03/05/18 11:04 Case d/w Mark Aguayo with [facility] heart, will consult ED Medical Decision Making - Lab Data Result diagrams: 03/05/18 09:12 03/05/18 09:12 Lab Results 03/05/18 03/05/18 Range/Units 09:12 09:12 WBC 6.6 (4.5-11.0) K/mm3 RBC 4.29 (3.65-5.03) M/mm3 Hgb 11.2 (10.1-14.3) gm/dl Hct 34.3 (30.3-42.9) % MCV 80 (79-97) fl MCH 26 L (28-32) pg MCHC 33 (30-34) % RDW 16.9 H (13.2-15.2) % Plt Count 234 (140-440) K/mm3 Lymph % (Auto) 43.5 H (13.4-35.0) % [place] % (Auto) 9.5 H (0.0-7.3) % Eos % (Auto) 1.9 (0.0-4.3) % Baso % (Auto) 0.7 (0.0-1.8) % Lymph # 2.9 (1.2-5.4) K/mm3 [place] # 0.6 (0.0-0.8) K/mm3 Eos # 0.1 (0.0-0.4) K/mm3 Baso # 0.0 (0.0-0.1) K/mm3 Seg Neutrophils % 44.4 (40.0-70.0) % Seg Neutrophils # 2.9 (1.8-7.7) K/mm3 Sodium 138 (137-145) mmol/L Potassium 3.8 (3.6-5.0) mmol/L Chloride 102.1 (98-107) mmol/L Carbon Dioxide 27 (22-30) mmol/L Anion Gap 13 mmol/L BUN 6 L (7-17) mg/dL Creatinine 0.5 L (0.7-1.2) mg/dL Estimated GFR > 60 ml/min BUN/Creatinine Ratio 12 % Glucose 110 H (65-100) mg/dL Calcium 8.7 (8.4-10.2) mg/dL NT-Pro-B Natriuret Pep 662.2 (0-900) pg/mL cardiac enzymes neg - EKG Data -: EKG Interpreted by [place] EKG shows normal: sinus rhythm, axis (90), QRS complexes (74), ST-T waves Rate: normal (87) - EKG Data When compared to previous EKG there are: no significant change - Medical Decision Making Acute CHF exacerbation Like he secondary to Lasix noncompliance no Chest pain or EKG changes, cardiac enzymes neg ED treatment includes Lasix 60 mg IV, nitroglycerin paste and, and BiPAP Hospitalist informed of admission - Differential Diagnosis CHF, mild compliance, renal failure, MT, asthma, pneumonia Critical Care Time: No Critical care attestation.: If time is entered above; I have spent that time in minutes in the direct care of this critically ill patient, excluding procedure time. ED Disposition Clinical Impression: CHF exacerbation, Asthma, Obesity, Noncompliance with medication regimen, Hypertension Disposition: OP ADMIT IP TO THIS HOSP Is pt being admited?: Yes Condition: Stable Time of Disposition: 11:06 (Dr Roberts/hosp)
--- NOTE | 2018-03-05 11:05 | XRay Report ---
ROUTINE CHEST, TWO VIEWS: HISTORY: Shortness of breath. Mild cardiomegaly is stable. Pulmonary markings are prominent bilaterally in the lower lung zones. This probably represents pulmonary venous congestion. Infiltrates are thought less likely. No consolidation, pleural effusion or pneumothorax. The bony structures are grossly intact. IMPRESSION: Mild cardiomegaly and pulmonary venous congestion. No significant change since the exam 4 days ago.
[2018-03-05 12:02] LABS: Creatine Kinase MB 1.3 ng/mL (0.0-4.0)
--- NOTE | 2018-03-05 14:30 | Consultation ---
History of Present Illness Consult date: 03/05/18 Consult reason: congestive heart failure History of present illness: This is a 52yr old woman who gives a history of dilated nonischemic cardiomyopathy. Patient reports she underwent a cardiac catheterization 2 years ago at [place] that showed no significant coronary artery disease but a decreased left ventricular ejection fraction 35%. Patient also reports a history of congenital heart disease requiring surgery at the age of 6. She presented to this hospital with complaints of shortness of breath, lower extremity edema, ongoing for several weeks. She denies chest pain and palpitations. There were no reports of syncope. A chest xray reports mild cardiomegaly with mild congestion. Her ECG is a normal sinus rhythm. A cardiac consultation was requested for CHF evaluation. Medications and Allergies Allergies Allergy/AdvReac Type Severity Reaction Status Date / Time aspirin Allergy Hives Verified 12/07/17 19:51 strawberry Allergy Swelling Verified 03/03/18 04:41 Home Medications Medication Instructions Recorded Confirmed Last Taken Type ALBUTEROL Inhaler [ProAir HFA 2 puff IH QID PRN #1 device 02/06/18 03/05/18 Unknown Rx Inhaler] Clopidogrel [Plavix] 75 mg PO QDAY #30 tablet 02/06/18 03/05/18 03/05/18 Rx Metoprolol [Lopressor TAB] 50 mg PO BID #60 tablet 02/06/18 03/05/18 Unknown Rx Furosemide [Lasix] 20 mg PO BID 03/05/18 03/05/18 Unknown History Losartan [Cozaar] 50 mg PO QDAY 03/05/18 03/05/18 03/05/18 History Physical Examination Vital Signs Temp Pulse Resp BP Pulse Ox 97.8 F 89 24 140/104 96 03/05/18 08:57 03/05/18 08:57 03/05/18 08:57 03/05/18 08:57 03/05/18 08:57 General appearance: no acute distress HEENT: Positive: PERRL Cardiac: Positive: Reg Rate and Rhythm Neuro: Positive: Grossly Intact Extremities: Present: +2 Edema Results 03/05/18 09:12 03/05/18 09:12 Cardiac Enzymes 03/05/18 Range/Units 09:12 CK-MB (CK-2) 1.3 (0.0-4.0) ng/mL CBC 03/05/18 Range/Units 09:12 WBC 6.6 (4.5-11.0) K/mm3 RBC 4.29 (3.65-5.03) M/mm3 Hgb 11.2 (10.1-14.3) gm/dl Hct 34.3 (30.3-42.9) % Plt Count 234 (140-440) K/mm3 Lymph # 2.9 (1.2-5.4) K/mm3 [place] # 0.6 (0.0-0.8) K/mm3 Eos # 0.1 (0.0-0.4) K/mm3 Baso # 0.0 (0.0-0.1) K/mm3 Comprehensive Metabolic Panel 03/05/18 Range/Units 09:12 Sodium 138 (137-145) mmol/L Potassium 3.8 (3.6-5.0) mmol/L Chloride 102.1 (98-107) mmol/L Carbon Dioxide 27 (22-30) mmol/L BUN 6 L (7-17) mg/dL Creatinine 0.5 L (0.7-1.2) mg/dL Glucose 110 H (65-100) mg/dL Calcium 8.7 (8.4-10.2) mg/dL Assessment and Plan Acute systolic heart failure Hypertension Nonischemic CMP [facility] 2015: no significant CAD Tobacco abuse Morbid obesity
--- NOTE | 2018-03-05 22:37 | History and Physical Report ---
History of Present Illness Date of examination: 03/05/18 Date of admission: 03/05/18 11:08 Chief complaint: Chief complaint: Shortness of breath for 1 month more so for the last 4 days History of present illness: History of Present Illness 52-year-old -[place] female with past medical history of CHF and open heart surgery 1971 for congenital heart defect hypertension and cerebrovascular accident comes in for increasing shortness of breath of one month duration. More so for the last 4 days. Orthopnea present. Class IV NYHA symptoms present. No chest pain. 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 No recent travel. Shortness of breath on minimal exertion. Exacerbated by exertion and relieved by rest. Past Medical History Hx Hypertension: Yes Hx CVA: Yes (2015) Hx Congestive Heart Failure: Yes Hx Headaches / Migraines: Yes Additional medical history: brain aneurysm x2 Surgical History Hx Coronary Stent: Yes Additional Surgical History: thyroid removal, open heart sx 1971 Social History Smoking Status: Current Every Day Smoker Substance Use Type: None Family history Hypertension Medications Home Medications: Home Medications Medication Instructions Recorded Confirmed Last Taken Type ALBUTEROL Inhaler [ProAir HFA 2 puff IH QID PRN #1 device 02/06/18 03/05/18 Unknown Rx Inhaler] Clopidogrel [Plavix] 75 mg PO QDAY #30 tablet 02/06/18 03/05/18 03/05/18 Rx Metoprolol [Lopressor TAB] 50 mg PO BID #60 tablet 02/06/18 03/05/18 Unknown Rx Furosemide [Lasix] 20 mg PO BID 03/05/18 03/05/18 Unknown History Losartan [Cozaar] 50 mg PO QDAY 03/05/18 03/05/18 03/05/18 History Medications and Allergies Allergies Allergy/AdvReac Type Severity Reaction Status Date / Time aspirin Allergy Hives Verified 12/07/17 19:51 strawberry Allergy Swelling Verified 03/03/18 04:41 Home Medications Medication Instructions Recorded Confirmed Last Taken Type ALBUTEROL Inhaler [ProAir HFA 2 puff IH QID PRN #1 device 02/06/18 03/05/18 Unknown Rx Inhaler] Clopidogrel [Plavix] 75 mg PO QDAY #30 tablet 02/06/18 03/05/18 03/05/18 Rx Metoprolol [Lopressor TAB] 50 mg PO BID #60 tablet 02/06/18 03/05/18 Unknown Rx Furosemide [Lasix] 20 mg PO BID 03/05/18 03/05/18 Unknown History Losartan [Cozaar] 50 mg PO QDAY 03/05/18 03/05/18 03/05/18 History Review of Systems All systems: negative Constitutional: weight gain (secondary to fluid gain), fatigue Ears, nose, mouth and throat: no sore throat, no swelling in mouth, no swelling in throat, no odynophagia Cardiovascular: orthopnea, edema, shortness of breath, dyspnea on exertion, no chest pain, no palpitations, no rapid/irregular heart beat, no syncope, no lightheadedness Respiratory: shortness of breath, dyspnea on exertion, no cough, no cough with sputum, no excessive sputum, no hemoptysis Gastrointestinal: no abdominal pain, no nausea, no vomiting, no diarrhea, no constipation, no change in bowel habits, no hematemesis, no coffee ground emesis Genitourinary Female: no dysuria, no urinary frequency, no urgency, no stress incontinence Rectal: no pain Musculoskeletal: no neck stiffness, no neck pain, no shooting arm pain, no arm numbness/tingling, no low back pain Integumentary: no rash, no pruritis, no redness, no sores Neurological: no seizures, no syncope Psychiatric: no anxiety, no memory loss, no change in sleep habits, no sleep disturbances, no insomnia, no hypersomnia Endocrine: no cold intolerance, no heat intolerance, no polyphagia Hematologic/Lymphatic: no easy bruising, no easy bleeding Allergic/Immunologic: no urticaria, no allergic rhinitis, no wheezing Exam - Physical Exam Narrative exam: Lying in bed orthognathic - Constitutional Vitals: Temp Pulse Resp BP Pulse Ox 98.5 F 85 20 138/83 98 03/05/18 20:06 03/05/18 20:06 03/05/18 20:06 03/05/18 20:06 03/05/18 20:06 General appearance: Present: no acute distress, mild distress, well-nourished - EENT Eyes: Present: PERRL ENT: hearing intact, clear oral mucosa - Neck Neck: Present: supple, normal ROM - Respiratory Respiratory effort: normal Respiratory: bilateral: CTA, rales - Cardiovascular Heart rate: 90 Rhythm: regular Heart Sounds: Present: S1 & S2. Absent: rub, click - Extremities Extremities: no ischemia, pulses intact, pulses symmetrical, No edema Peripheral Pulses: within normal limits - Abdominal General gastrointestinal: Present: soft, non-tender, non-distended, normal bowel sounds Female genitourinary: Present: normal - Rectal Rectal Exam: deferred - Integumentary Integumentary: Present: clear, warm, dry - Musculoskeletal Musculoskeletal: gait normal, strength equal bilaterally - Psychiatric Psychiatric: appropriate mood/affect, intact judgment & insight - Neurologic Neurologic: CNII-XII intact, moves all extremities - Allied Health Allied health notes reviewed: nursing, case management Results - Labs CBC & Chem 7: 03/05/18 09:12 03/05/18 09:12 Labs: Laboratory Last Values WBC 6.6 K/mm3 (4.5-11.0) 03/05/18 09:12 RBC 4.29 M/mm3 (3.65-5.03) 03/05/18 09:12 Hgb 11.2 gm/dl (10.1-14.3) 03/05/18 09:12 Hct 34.3 % (30.3-42.9) 03/05/18 09:12 MCV 80 fl (79-97) 03/05/18 09:12 MCH 26 pg (28-32) L 03/05/18 09:12 MCHC 33 % (30-34) 03/05/18 09:12 RDW 16.9 % (13.2-15.2) H 03/05/18 09:12 Plt Count 234 K/mm3 (140-440) 03/05/18 09:12 Lymph % (Auto) 43.5 % (13.4-35.0) H 03/05/18 09:12 [place] % (Auto) 9.5 % (0.0-7.3) H 03/05/18 09:12 Eos % (Auto) 1.9 % (0.0-4.3) 03/05/18 09:12 Baso % (Auto) 0.7 % (0.0-1.8) 03/05/18 09:12 Lymph # 2.9 K/mm3 (1.2-5.4) 03/05/18 09:12 [place] # 0.6 K/mm3 (0.0-0.8) 03/05/18 09:12 Eos # 0.1 K/mm3 (0.0-0.4) 03/05/18 09:12 Baso # 0.0 K/mm3 (0.0-0.1) 03/05/18 09:12 Seg Neutrophils % 44.4 % (40.0-70.0) 03/05/18 09:12 Seg Neutrophils # 2.9 K/mm3 (1.8-7.7) 03/05/18 09:12 POC ABG pH 7.431 (7.35-7.45) 03/05/18 15:18 POC ABG pCO2 44.9 (35-45) 03/05/18 15:18 POC ABG pO2 64 (80-105) L 03/05/18 15:18 POC ABG HCO3 29.8 03/05/18 15:18 POC ABG Total CO2 31 03/05/18 15:18 POC ABG O2 Sat 92 03/05/18 15:18 POC ABG Base Excess 6 03/05/18 15:18 FiO2 21 % 03/05/18 15:18 Sodium 138 mmol/L (137-145) 03/05/18 09:12 Potassium 3.8 mmol/L (3.6-5.0) 03/05/18 09:12 Chloride 102.1 mmol/L (98-107) 03/05/18 09:12 Carbon Dioxide 27 mmol/L (22-30) 03/05/18 09:12 Anion Gap 13 mmol/L 03/05/18 09:12 BUN 6 mg/dL (7-17) L 03/05/18 09:12 Creatinine 0.5 mg/dL (0.7-1.2) L 03/05/18 09:12 Estimated GFR > 60 ml/min 03/05/18 09:12 BUN/Creatinine Ratio 12 % 03/05/18 09:12 Glucose 110 mg/dL (65-100) H 03/05/18 09:12 Calcium 8.7 mg/dL (8.4-10.2) 03/05/18 09:12 Total Creatine Kinase 51 units/L (30-135) 03/05/18 09:12 CK-MB (CK-2) 1.3 ng/mL (0.0-4.0) 03/05/18 09:12 CK-MB (CK-2) Rel Index 2.5 (0-4) 03/05/18 09:12 Troponin T < 0.010 ng/mL (0.00-0.029) 03/05/18 09:12 NT-Pro-B Natriuret Pep 662.2 pg/mL (0-900) 03/05/18 09:12 Short CBC 03/05/18 Range/Units 09:12 WBC 6.6 (4.5-11.0) K/mm3 Hgb 11.2 (10.1-14.3) gm/dl Hct 34.3 (30.3-42.9) % Plt Count 234 (140-440) K/mm3 BMP 03/05/18 09:12 Sodium 138 Potassium 3.8 Chloride 102.1 Carbon Dioxide 27 BUN 6 L Creatinine 0.5 L Glucose 110 H Calcium 8.7 Cardiac Enzymes 03/05/18 Range/Units 09:12 Total Creatine Kinase 51 (30-135) units/L CK-MB (CK-2) 1.3 (0.0-4.0) ng/mL Troponin T < 0.010 (0.00-0.029) ng/mL - Imaging and Cardiology EKG: report reviewed (sinus rhythm probable left atrial enlargement heart rate of [address]-T wave changes) Chest x-ray: report reviewed (pulmonary vascular congestion) Assessment and Plan Advance Directives: Yes (full code) VTE prophylaxis?: Chemical Plan of care discussed with patient/family: Yes - Patient Problems (1) Acute diastolic heart failure Current Visit: Yes Status: Acute Plan to address problem: IV Lasix Echocardiogram (2) CHF exacerbation Current Visit: Yes Status: Acute Qualifiers: Heart failure type: diastolic Qualified Code(s): I50.33 - Acute on chronic diastolic (congestive) heart failure Plan to address problem: IV Lasix Echocardiogram Cardiology consult Daily intake and output Daily weights Afterload reduction (3) Asthma Current Visit: Yes Status: Inactive Plan to address problem: Nebulizers when necessary (4) Hypertension Current Visit: Yes Status: Chronic Qualifiers: Hypertension type: essential hypertension Qualified Code(s): I10 - Essential (primary) hypertension Plan to address problem: continue antihypertensives (5) Noncompliance with medication regimen Current Visit: Yes Status: Chronic Plan to address problem: patient counseled (6) Cerebrovascular accident Current Visit: Yes Status: Chronic Plan to address problem: Remote Continue Plavix (7) DVT prophylaxis Current Visit: Yes Status: Acute Plan to address problem: heparin subcutaneously
[2018-03-05] MEDS ORDERED: ZOFRAN IV PRN (22:51)
[2018-03-05] MEDS ORDERED: MORPHINE IV PRN (22:51)
[2018-03-05] MEDS ORDERED: TYLENOL PO PRN (22:51)
[2018-03-05] MEDS ORDERED: SODIUM CHLORIDE FLUSH SYRINGE 10 ML IV PRN (22:51)
[2018-03-05] MEDS: LOPRESSOR PO SCH (23:39)
[2018-03-05] MEDS: PERCOCET 5/325 PO PRN (23:40)
[2018-03-05] MEDS: K-DUR PO SCH (23:40)
[2018-03-06 04:05] LABS: Basophils % (Auto) 0.6 % (0.0-1.8); Eosinophils # (Auto) 0.2 K/mm3 (0.0-0.4); Eosinophils % (Auto) 2.6 % (0.0-4.3); Hematocrit 35.1 % (30.3-42.9); Hemoglobin 11.2 gm/dl (10.1-14.3); Lymphocytes # (Auto) 2.5 K/mm3 (1.2-5.4); Lymphocytes % (Auto) 34.4 % (13.4-35.0); Mean Corpuscular HGB Conc 32 % (30-34); Mean Corpuscular Volume 81 fl (79-97); Monocytes # (Auto) 0.8 K/mm3 (0.0-0.8); Platelet Count 226 K/mm3 (140-440); Red Blood Count 4.35 M/mm3 (3.65-5.03); Red Cell Distribution Width 17.9 % (13.2-15.2)
[2018-03-06 04:11] LABS: Mean Corpuscular Hemoglobin 26 pg (28-32)
[2018-03-06 05:03] LABS: Alanine Aminotransferase 13 units/L (7-56); Albumin 3.1 g/dL (3.9-5); BUN/Creatinine Ratio 17; Blood Urea Nitrogen 10 mg/dL (7-17); Calcium 8.8 mg/dL (8.4-10.2); Hemolysis Index 32
[2018-03-06] MEDS: LASIX IV SCH ×2 (06:24→17:45)
--- NOTE | 2018-03-06 09:51 | Progress Note ---
<ANGELICA GARCIA - Last Filed: 03/06/18 14:16> Assessment and Plan Assessment and plan: Patient is a 52-year-old woman who presented to the emergency department with complaint of shortness of breath that has endocrine for the past month with in symptoms over the past 4 days. Acute on chronic systolic heart failure Echocardiogram showed LVEF 20-25%, restrictive filling, continue IV Lasix, Afterload reduction, Daily intake and output, Daily weights Cardiology following Metabolic acidosis We'll continue to monitor patient, judicious use of IV fluids at this time, we' ll consider bicarbonate if necessary Asthma Nebulizers when necessary Hypertension Blood pressure is currently controlled, continue antihypertensives Noncompliance with medication regimen patient counseled History as Cerebrovascular accident Continue Plavix Obesity Patient counseled on weight loss and reduce caloric intake DVT prophylaxis heparin subcutaneously History Interval history: Patient seen and examined. She is feeling better with no shortness of breath at this time. She is currently on 2 L of O2, does not use O2 at home. Labs and nursing notes reviewed. Hospitalist Physical - Constitutional Vitals: Temp Pulse Resp BP Pulse Ox 98.0 F 95 H 18 111/58 93 03/06/18 04:24 03/06/18 04:33 03/06/18 04:24 03/06/18 04:24 03/06/18 04:24 General appearance: Present: no acute distress, well-nourished, obese - EENT Eyes: Present: PERRL, EOM intact ENT: hearing intact, clear oral mucosa - Neck Neck: Present: supple, normal ROM - Respiratory Respiratory effort: normal Respiratory: bilateral: CTA - Cardiovascular Rhythm: regular Heart Sounds: Present: S1 & S2 - Extremities Extremities: no ischemia, pulses intact Extremity abnormal: edema (1+ bilateral lower extremity pitting edema) - Abdominal General gastrointestinal: soft, non-tender, non-distended - Integumentary Integumentary: Present: clear, warm, dry - Psychiatric Psychiatric: appropriate mood/affect, intact judgment & insight, cooperative - Neurologic Neurologic: CNII-XII intact, moves all extremities Results - Labs CBC & Chem 7: 03/06/18 03:13 03/06/18 03:13 Labs: Laboratory Last Values WBC 7.3 K/mm3 (4.5-11.0) 03/06/18 03:13 RBC 4.35 M/mm3 (3.65-5.03) 03/06/18 03:13 Hgb 11.2 gm/dl (10.1-14.3) 03/06/18 03:13 Hct 35.1 % (30.3-42.9) 03/06/18 03:13 MCV 81 fl (79-97) 03/06/18 03:13 MCH 26 pg (28-32) L 03/06/18 03:13 MCHC 32 % (30-34) 03/06/18 03:13 RDW 17.9 % (13.2-15.2) H 03/06/18 03:13 Plt Count 226 K/mm3 (140-440) 03/06/18 03:13 Lymph % (Auto) 34.4 % (13.4-35.0) 03/06/18 03:13 [place] % (Auto) 11.0 % (0.0-7.3) H 03/06/18 03:13 Eos % (Auto) 2.6 % (0.0-4.3) 03/06/18 03:13 Baso % (Auto) 0.6 % (0.0-1.8) 03/06/18 03:13 Lymph # 2.5 K/mm3 (1.2-5.4) 03/06/18 03:13 [place] # 0.8 K/mm3 (0.0-0.8) 03/06/18 03:13 Eos # 0.2 K/mm3 (0.0-0.4) 03/06/18 03:13 Baso # 0.0 K/mm3 (0.0-0.1) 03/06/18 03:13 Seg Neutrophils % 51.4 % (40.0-70.0) 03/06/18 03:13 Seg Neutrophils # 3.8 K/mm3 (1.8-7.7) 03/06/18 03:13 POC ABG pH 7.431 (7.35-7.45) 03/05/18 15:18 POC ABG pCO2 44.9 (35-45) 03/05/18 15:18 POC ABG pO2 64 (80-105) L 03/05/18 15:18 POC ABG HCO3 29.8 03/05/18 15:18 POC ABG Total CO2 31 03/05/18 15:18 POC ABG O2 Sat 92 03/05/18 15:18 POC ABG Base Excess 6 03/05/18 15:18 FiO2 21 % 03/05/18 15:18 Sodium 138 mmol/L (137-145) 03/06/18 03:13 Potassium 4.7 mmol/L (3.6-5.0) D 03/06/18 03:13 Chloride 97.9 mmol/L (98-107) L 03/06/18 03:13 Carbon Dioxide 20 mmol/L (22-30) L D 03/06/18 03:13 Anion Gap 25 mmol/L 03/06/18 03:13 BUN 10 mg/dL (7-17) 03/06/18 03:13 Creatinine 0.6 mg/dL (0.7-1.2) L 03/06/18 03:13 Estimated GFR > 60 ml/min 03/06/18 03:13 BUN/Creatinine Ratio 17 % 03/06/18 03:13 Glucose 85 mg/dL (65-100) 03/06/18 03:13 Hemoglobin A1c 6.1 % (4-6) H 03/05/18 23:15 Calcium 8.8 mg/dL (8.4-10.2) 03/06/18 03:13 Total Bilirubin 0.30 mg/dL (0.1-1.2) 03/06/18 03:13 AST 17 units/L (5-40) 03/06/18 03:13 ALT 13 units/L (7-56) 03/06/18 03:13 Alkaline Phosphatase 70 units/L (35-129) 03/06/18 03:13 Total Creatine Kinase 51 units/L (30-135) 03/05/18 09:12 CK-MB (CK-2) 1.3 ng/mL (0.0-4.0) 03/05/18 09:12 CK-MB (CK-2) Rel Index 2.5 (0-4) 03/05/18 09:12 Troponin T < 0.010 ng/mL (0.00-0.029) 03/05/18 09:12 NT-Pro-B Natriuret Pep 662.2 pg/mL (0-900) 03/05/18 09:12 Total Protein 6.6 g/dL (6.3-8.2) 03/06/18 03:13 Albumin 3.1 g/dL (3.9-5) L 03/06/18 03:13 Albumin/Globulin Ratio 0.9 % 03/06/18 03:13 <ROGER GOMEZ - Last Filed: 03/06/18 21:08> History Interval history: I saw and evaluated the patient. I agree with the findings and the plan of care as documented in the Nurse Practitioner's~note, with the following corrections and additions. Cardiology evaluation and recommendations noted and appreciated Continue current management Plan of care reviewed with the patient Hospitalist Physical - Constitutional Vitals: Temp Pulse Resp BP Pulse Ox 98.4 F 73 20 125/85 98 03/06/18 20:27 03/06/18 20:27 03/06/18 20:27 03/06/18 20:27 03/06/18 20:27 Results - Labs CBC & Chem 7: 03/06/18 03:13 03/06/18 03:13 Labs: Laboratory Last Values WBC 7.3 K/mm3 (4.5-11.0) 03/06/18 03:13 RBC 4.35 M/mm3 (3.65-5.03) 03/06/18 03:13 Hgb 11.2 gm/dl (10.1-14.3) 03/06/18 03:13 Hct 35.1 % (30.3-42.9) 03/06/18 03:13 MCV 81 fl (79-97) 03/06/18 03:13 MCH 26 pg (28-32) L 03/06/18 03:13 MCHC 32 % (30-34) 03/06/18 03:13 RDW 17.9 % (13.2-15.2) H 03/06/18 03:13 Plt Count 226 K/mm3 (140-440) 03/06/18 03:13 Lymph % (Auto) 34.4 % (13.4-35.0) 03/06/18 03:13 [place] % (Auto) 11.0 % (0.0-7.3) H 03/06/18 03:13 Eos % (Auto) 2.6 % (0.0-4.3) 03/06/18 03:13 Baso % (Auto) 0.6 % (0.0-1.8) 03/06/18 03:13 Lymph # 2.5 K/mm3 (1.2-5.4) 03/06/18 03:13 [place] # 0.8 K/mm3 (0.0-0.8) 03/06/18 03:13 Eos # 0.2 K/mm3 (0.0-0.4) 03/06/18 03:13 Baso # 0.0 K/mm3 (0.0-0.1) 03/06/18 03:13 Seg Neutrophils % 51.4 % (40.0-70.0) 03/06/18 03:13 Seg Neutrophils # 3.8 K/mm3 (1.8-7.7) 03/06/18 03:13 POC ABG pH 7.431 (7.35-7.45) 03/05/18 15:18 POC ABG pCO2 44.9 (35-45) 03/05/18 15:18 POC ABG pO2 64 (80-105) L 03/05/18 15:18 POC ABG HCO3 29.8 03/05/18 15:18 POC ABG Total CO2 31 03/05/18 15:18 POC ABG O2 Sat 92 03/05/18 15:18 POC ABG Base Excess 6 03/05/18 15:18 FiO2 21 % 03/05/18 15:18 Sodium 138 mmol/L (137-145) 03/06/18 03:13 Potassium 4.7 mmol/L (3.6-5.0) D 03/06/18 03:13 Chloride 97.9 mmol/L (98-107) L 03/06/18 03:13 Carbon Dioxide 20 mmol/L (22-30) L D 03/06/18 03:13 Anion Gap 25 mmol/L 03/06/18 03:13 BUN 10 mg/dL (7-17) 03/06/18 03:13 Creatinine 0.6 mg/dL (0.7-1.2) L 03/06/18 03:13 Estimated GFR > 60 ml/min 03/06/18 03:13 BUN/Creatinine Ratio 17 % 03/06/18 03:13 Glucose 85 mg/dL (65-100) 03/06/18 03:13 Hemoglobin A1c 6.1 % (4-6) H 03/05/18 23:15 Calcium 8.8 mg/dL (8.4-10.2) 03/06/18 03:13 Magnesium 1.70 mg/dL (1.7-2.3) 03/06/18 10:46 Total Bilirubin 0.30 mg/dL (0.1-1.2) 03/06/18 03:13 AST 17 units/L (5-40) 03/06/18 03:13 ALT 13 units/L (7-56) 03/06/18 03:13 Alkaline Phosphatase 70 units/L (35-129) 03/06/18 03:13 Total Creatine Kinase 51 units/L (30-135) 03/05/18 09:12 CK-MB (CK-2) 1.3 ng/mL (0.0-4.0) 03/05/18 09:12 CK-MB (CK-2) Rel Index 2.5 (0-4) 03/05/18 09:12 Troponin T < 0.010 ng/mL (0.00-0.029) 03/05/18 09:12 NT-Pro-B Natriuret Pep 662.2 pg/mL (0-900) 03/05/18 09:12 Total Protein 6.6 g/dL (6.3-8.2) 03/06/18 03:13 Albumin 3.1 g/dL (3.9-5) L 03/06/18 03:13 Albumin/Globulin Ratio 0.9 % 03/06/18 03:13
[2018-03-06] MEDS ORDERED: NACL 0.9% 1000 ML 1,000 ML IV SCH (10:00)
--- NOTE | 2018-03-06 10:40 | Progress Note ---
Assessment and Plan Acute systolic heart failure Hypertension Nonischemic CMP Cardiac catheterization report from [facility] in December 2015 reports no significant coronary disease. December 2015 echocardiogram showed a moderate severity cardiomyopathy with ejection fraction 35-40%. Tobacco abuse Morbid obesity Noncompliance with medical therapy Recommendations: Medical therapy for heart failure to include diuretic therapy, afterload reducing therapy, beta blockers and oral antiplatelet therapy. Fluid/sodium restriction. Echocardiogram for left ventricular function and valvular function assessment. No further ischemic workup indicated. Subjective Date of service: 03/06/18 Interval history: Patient is resting in bed comfortably. Reports her breathing has somewhat improved since admission. Objective Vital Signs Temp Pulse Resp BP BP Pulse Ox 03/06/18 09:45 98 03/06/18 04:33 95 H 03/06/18 04:24 98.0 F 81 18 111/58 93 03/06/18 01:57 98 03/05/18 23:55 98.8 F 90 20 116/63 96 03/05/18 23:39 138/83 03/05/18 20:06 98.5 F 85 20 138/83 98 03/05/18 16:20 97.9 F 85 18 116/78 94 03/05/18 15:24 97 03/05/18 12:00 101 H 14 168/101 03/05/18 11:48 84 22 168/84 98 03/05/18 11:30 96 H 17 168/101 03/05/18 11:03 106 H 18 99 03/05/18 11:00 99 H 17 159/111 99 - Physical Examination General: No Apparent Distress HEENT: Positive: PERRL Cardiac: Positive: Reg Rate and Rhythm Lungs: Positive: Decreased Breath Sounds Neuro: Positive: Grossly Intact Extremities: Present: +1 Edema - Labs and Meds Cardiac Enzymes 03/05/18 03/06/18 Range/Units 09:12 03:13 AST 17 (5-40) units/L CK-MB (CK-2) 1.3 (0.0-4.0) ng/mL CBC 03/06/18 Range/Units 03:13 WBC 7.3 (4.5-11.0) K/mm3 RBC 4.35 (3.65-5.03) M/mm3 Hgb 11.2 (10.1-14.3) gm/dl Hct 35.1 (30.3-42.9) % Plt Count 226 (140-440) K/mm3 Lymph # 2.5 (1.2-5.4) K/mm3 [place] # 0.8 (0.0-0.8) K/mm3 Eos # 0.2 (0.0-0.4) K/mm3 Baso # 0.0 (0.0-0.1) K/mm3 Comprehensive Metabolic Panel 03/06/18 Range/Units 03:13 Sodium 138 (137-145) mmol/L Potassium 4.7 D (3.6-5.0) mmol/L Chloride 97.9 L (98-107) mmol/L Carbon Dioxide 20 L D (22-30) mmol/L BUN 10 (7-17) mg/dL Creatinine 0.6 L (0.7-1.2) mg/dL Glucose 85 (65-100) mg/dL Calcium 8.8 (8.4-10.2) mg/dL AST 17 (5-40) units/L ALT 13 (7-56) units/L Alkaline Phosphatase 70 (35-129) units/L Total Protein 6.6 (6.3-8.2) g/dL Albumin 3.1 L (3.9-5) g/dL
[2018-03-06] MEDS: COZAAR PO SCH (11:10)
[2018-03-06] MEDS: K-DUR PO SCH ×2 (11:11→22:41)
[2018-03-06] MEDS: LOPRESSOR PO SCH ×2 (11:11→22:41)
[2018-03-06] MEDS: PEPCID IV SCH ×2 (11:12→22:41)
[2018-03-06] MEDS: PLAVIX PO SCH (11:12)
[2018-03-06] MEDS: SODIUM CHLORIDE FLUSH SYRINGE 10 ML IV SCH ×2 (11:12→22:51)
[2018-03-06] MEDS: PERCOCET 5/325 PO PRN (17:44)
[2018-03-07] MEDS: LASIX IV SCH ×2 (06:33→06:42)
--- NOTE | 2018-03-07 10:50 | Progress Note ---
Assessment and Plan 1. Acute decompensated chronic combined systolic and diastolic heart. 2. Dilated nonischemic cardiomyopathy LV ejection fraction 20-25% 3. Essential hypertension 4. Obesity 5. Noncompliance on medical therapy as well as dietary regime Plan. Continue present cardiac management Subjective Date of service: 03/07/18 Interval history: No cardiac symptoms Objective Vital Signs Temp Pulse Resp BP Pulse Ox 03/07/18 09:30 96 03/07/18 06:36 107/52 03/07/18 04:53 98.3 F 76 20 102/57 97 03/06/18 23:20 98.3 F 77 20 107/61 100 03/06/18 22:41 75 125/73 03/06/18 22:00 100 03/06/18 20:27 98.4 F 73 20 125/85 98 03/06/18 20:00 75 03/06/18 18:44 18 03/06/18 16:31 98.2 F 74 20 118/75 100 03/06/18 12:06 97.9 F 70 22 103/58 100 - Physical Examination General: Appears Well, No Apparent Distress HEENT: Positive: PERRL Neck: Positive: neck supple. Negative: JVD/HJR Cardiac: Positive: Regular Rate, S1/S2, PMI, Laterally Displaced Lungs: Positive: clear to auscultation, No Wheeze, Rales, Rhonchi Neuro: Positive: Grossly Intact Abdomen: Positive: Unremarkable, Soft Skin: Positive: Clear Extremities: Absent: edema - Imaging and Cardiology EKG: report reviewed (sinus rhythm probable left atrial enlargement heart rate of [address]-T wave changes)
[2018-03-07] MEDS: PLAVIX PO SCH (11:30)
[2018-03-07] MEDS: PEPCID IV SCH (11:30)
[2018-03-07] MEDS: K-DUR PO SCH (11:30)
[2018-03-07] MEDS: COZAAR PO SCH (11:30)
[2018-03-07] MEDS: LOPRESSOR PO SCH (11:30)
[2018-03-07 12:00] VITALS: BP 116/67
--- NOTE | 2018-03-07 14:07 | Progress Note ---
Hospitalist Physical - Constitutional Vitals: Temp Pulse Resp BP Pulse Ox 98.3 F 78 20 116/67 96 03/07/18 04:53 03/07/18 12:00 03/07/18 04:53 03/07/18 11:30 03/07/18 09:30 General appearance: Present: no acute distress, well-nourished, obese - EENT Eyes: Present: PERRL, EOM intact - Neck Neck: Present: supple, normal ROM - Respiratory Respiratory effort: normal Respiratory: bilateral: diminished, negative: rales, rhonchi, wheezing - Cardiovascular Rhythm: regular Heart Sounds: Present: S1 & S2 - Extremities Extremities: no ischemia, No edema - Abdominal General gastrointestinal: soft, non-tender, non-distended, normal bowel sounds - Integumentary Integumentary: Present: clear, warm - Psychiatric Psychiatric: appropriate mood/affect, cooperative - Neurologic Neurologic: CNII-XII intact, moves all extremities Results - Labs CBC & Chem 7: 03/06/18 03:13 03/06/18 03:13 Labs: Laboratory Last Values WBC 7.3 K/mm3 (4.5-11.0) 03/06/18 03:13 RBC 4.35 M/mm3 (3.65-5.03) 03/06/18 03:13 Hgb 11.2 gm/dl (10.1-14.3) 03/06/18 03:13 Hct 35.1 % (30.3-42.9) 03/06/18 03:13 MCV 81 fl (79-97) 03/06/18 03:13 MCH 26 pg (28-32) L 03/06/18 03:13 MCHC 32 % (30-34) 03/06/18 03:13 RDW 17.9 % (13.2-15.2) H 03/06/18 03:13 Plt Count 226 K/mm3 (140-440) 03/06/18 03:13 Lymph % (Auto) 34.4 % (13.4-35.0) 03/06/18 03:13 [place] % (Auto) 11.0 % (0.0-7.3) H 03/06/18 03:13 Eos % (Auto) 2.6 % (0.0-4.3) 03/06/18 03:13 Baso % (Auto) 0.6 % (0.0-1.8) 03/06/18 03:13 Lymph # 2.5 K/mm3 (1.2-5.4) 03/06/18 03:13 [place] # 0.8 K/mm3 (0.0-0.8) 03/06/18 03:13 Eos # 0.2 K/mm3 (0.0-0.4) 03/06/18 03:13 Baso # 0.0 K/mm3 (0.0-0.1) 03/06/18 03:13 Seg Neutrophils % 51.4 % (40.0-70.0) 03/06/18 03:13 Seg Neutrophils # 3.8 K/mm3 (1.8-7.7) 03/06/18 03:13 POC ABG pH 7.431 (7.35-7.45) 03/05/18 15:18 POC ABG pCO2 44.9 (35-45) 03/05/18 15:18 POC ABG pO2 64 (80-105) L 03/05/18 15:18 POC ABG HCO3 29.8 03/05/18 15:18 POC ABG Total CO2 31 03/05/18 15:18 POC ABG O2 Sat 92 03/05/18 15:18 POC ABG Base Excess 6 03/05/18 15:18 FiO2 21 % 03/05/18 15:18 Sodium 138 mmol/L (137-145) 03/06/18 03:13 Potassium 4.7 mmol/L (3.6-5.0) D 03/06/18 03:13 Chloride 97.9 mmol/L (98-107) L 03/06/18 03:13 Carbon Dioxide 20 mmol/L (22-30) L D 03/06/18 03:13 Anion Gap 25 mmol/L 03/06/18 03:13 BUN 10 mg/dL (7-17) 03/06/18 03:13 Creatinine 0.6 mg/dL (0.7-1.2) L 03/06/18 03:13 Estimated GFR > 60 ml/min 03/06/18 03:13 BUN/Creatinine Ratio 17 % 03/06/18 03:13 Glucose 85 mg/dL (65-100) 03/06/18 03:13 Hemoglobin A1c 6.1 % (4-6) H 03/05/18 23:15 Calcium 8.8 mg/dL (8.4-10.2) 03/06/18 03:13 Magnesium 1.70 mg/dL (1.7-2.3) 03/06/18 10:46 Total Bilirubin 0.30 mg/dL (0.1-1.2) 03/06/18 03:13 AST 17 units/L (5-40) 03/06/18 03:13 ALT 13 units/L (7-56) 03/06/18 03:13 Alkaline Phosphatase 70 units/L (35-129) 03/06/18 03:13 Total Creatine Kinase 51 units/L (30-135) 03/05/18 09:12 CK-MB (CK-2) 1.3 ng/mL (0.0-4.0) 03/05/18 09:12 CK-MB (CK-2) Rel Index 2.5 (0-4) 03/05/18 09:12 Troponin T < 0.010 ng/mL (0.00-0.029) 03/05/18 09:12 NT-Pro-B Natriuret Pep 662.2 pg/mL (0-900) 03/05/18 09:12 Total Protein 6.6 g/dL (6.3-8.2) 03/06/18 03:13 Albumin 3.1 g/dL (3.9-5) L 03/06/18 03:13 Albumin/Globulin Ratio 0.9 % 03/06/18 03:13
--- NOTE | 2018-03-07 14:14 | Discharge Summary ---
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 03/05/18 11:02 Consult to Physician [CONS] Urgent Comment: Consulting Provider: ELLIOT TORRES Physician Instructions: Reason For Exam: chf exacerbation Primary care physician: DIRECTOR OF RADIOLOGY Hospitalization Condition: Stable Disposition: DC/TX-02 SHRT-TRM GEN HOSP IP Time spent for discharge: 32 min Core Measure Documentation - Palliative Care Palliative Care/ Comfort Measures: Not Applicable - Core Measures Any of the following diagnoses?: heart failure - Heart Failure Discharge Requirements NEERAJ/ARB for LVSD if EF <40%: Yes Beta melissa at discharge: Yes Exam - Constitutional Vitals: Temp Pulse Resp BP Pulse Ox 98.3 F 78 20 116/67 96 03/07/18 04:53 03/07/18 12:00 03/07/18 04:53 03/07/18 11:30 03/07/18 09:30 General appearance: Present: no acute distress, well-nourished, obese (morbidly obese) - EENT Eyes: Present: PERRL, EOM intact - Neck Neck: Present: supple, normal ROM - Respiratory Respiratory: bilateral: diminished, negative: rales, rhonchi, wheezing - Cardiovascular Rhythm: regular Heart Sounds: Present: S1 & S2 - Extremities Extremities: no ischemia, No edema - Abdominal General gastrointestinal: Present: soft, non-tender, non-distended, normal bowel sounds - Integumentary Integumentary: Present: clear, warm - Musculoskeletal Musculoskeletal: strength equal bilaterally, generalized weakness - Psychiatric Psychiatric: appropriate mood/affect, cooperative - Neurologic Neurologic: CNII-XII intact, moves all extremities Plan Activity: no restrictions Diet: low salt, other (cardiac diet) Special Instructions: restrict fluid intake to (< 1000ml/24 hrs) Additional Instructions: Strongly advised to comply with medications and diet and 's visits. If you have chest pain or shortness of breath, contact M.D. or go to emergency room Follow up with: JONY ARROYO MD [Primary Care Provider] - 3-5 Days ELLIOT TORRES MD [Staff Physician] - 7 Days Prescriptions: Clopidogrel [Plavix] 75 mg PO QDAY #30 tablet Potassium Chloride 10 meq PO QDAY #30 capsule.er
== END 2018-03-07 15:42 | disposition short-term general hospital (02) | DRG 292 ==
LOC: ED 08:50 → 4A 11:08
PROVIDERS: ADMIT Internal Medicine; ATTEND Internal Medicine
PROC: 4A033R1 Measurement of Arterial Saturation, Peripheral, Percutaneous Approach (ICD-10-PCS; principal; 2018-03-05)
PROC: 5A09357 Assistance with Respiratory Ventilation, Less than 24 Consecutive Hours, Continuous Positive Airway Pressure (ICD-10-PCS; 2018-03-05)
DX: I11.0 Hypertensive heart disease with heart failure (principal); Z68.42 Body mass index [BMI] 45.0-49.9, adult; E87.2 Acidosis; J45.909 Unspecified asthma, uncomplicated; G43.909 Migraine, unspecified, not intractable, without status migrainosus; F17.200 Nicotine dependence, unspecified, uncomplicated; I50.43 Acute on chronic combined systolic (congestive) and diastolic (congestive) heart failure; E66.01 Morbid (severe) obesity due to excess calories; I25.10 Atherosclerotic heart disease of native coronary artery without angina pectoris; I42.0 Dilated cardiomyopathy; Z91.14 Patient's other noncompliance with medication regimen; Z86.73 Personal history of transient ischemic attack (TIA), and cerebral infarction without residual deficits; Z79.899 Other long term (current) drug therapy; Z88.6 Allergy status to analgesic agent; Z91.018 Allergy to other foods; Z95.5 Presence of coronary angioplasty implant and graft; Z71.3 Dietary counseling and surveillance
CPT/HCPCS: 36415; 36600; 71046; 80048; 80053; 82550; 82553; 82803; 83036; 83735; 83880; 84484; 85025; 93005; 93010; 93306; 94760; J1940

== ENCOUNTER 2018-05-24 01:32 | Inpatient (IN) | payer OTHER ==
[2018-05-24] MEDS ORDERED: PROVENTIL IH ONE (02:00)
[2018-05-24 02:15] LABS: Basophils % (Auto) 0.5 % (0.0-1.8); Eosinophils # (Auto) 0.4 K/mm3 (0.0-0.4); Eosinophils % (Auto) 6.1 % (0.0-4.3); Hematocrit 32.9 % (30.3-42.9); Hemoglobin 10.7 gm/dl (10.1-14.3); Lymphocytes # (Auto) 2.3 K/mm3 (1.2-5.4); Lymphocytes % (Auto) 39.7 % (13.4-35.0); Mean Corpuscular HGB Conc 33 % (30-34); Mean Corpuscular Volume 79 fl (79-97); Monocytes # (Auto) 0.6 K/mm3 (0.0-0.8); Monocytes % (Auto) 10.5 % (0.0-7.3); Platelet Count 238 K/mm3 (140-440); Red Blood Count 4.16 M/mm3 (3.65-5.03)
[2018-05-24 02:22] LABS: Mean Corpuscular Hemoglobin 26 pg (28-32)
[2018-05-24 02:34] LABS: BUN/Creatinine Ratio 13; Blood Urea Nitrogen 9 mg/dL (7-17); Calcium 9.1 mg/dL (8.4-10.2); Hemolysis Index 0
--- NOTE | 2018-05-24 02:55 | XRay Report ---
FINAL REPORT EXAM: XR CHEST ROUTINE 2V HISTORY: Shortness of breath TECHNIQUE: 2 views of the chest. PRIORS: 03/02/2018 FINDINGS: Cardiac silhouette is enlarged without change. There is mild prominence of the central pulmonary vascularity and interstitial markings. The bones and soft tissues are unremarkable. IMPRESSION: Findings are consistent with acute CHF. No significant interval change.
[2018-05-24] MEDS ORDERED: K-DUR PO ONE ×2 (09:22→10:46)
[2018-05-24] MEDS ORDERED: NITRO-BID 2% TP ONE (09:22)
[2018-05-24] MEDS ORDERED: LASIX IV ONE (09:22)
--- NOTE | 2018-05-24 09:24 | Emergency Department Report ---
ED Shortness of Breath HPI - General Chief Complaint: Dyspnea/Respdistress Stated Complaint: SOB,CHEST PAIN, Time Seen by Provider: 05/24/18 09:19 Source: patient Mode of arrival: Ambulatory Limitations: No Limitations - History of Present Illness Initial Comments: This is a poorly compliant 52-year-old female with a nonischemic cardiomyopathy. She is status post a negative cardiac catheterization in 2016 at [place]. At that time her EF was 35-40%. However during a recent hospitalization February her echocardiogram showed a deteriorated LV function of 2025%. At that time she was also noncompliance and admitted under similar circumstances. Cardiology did not recommend any further ischemic workup at that time. She was seen by [facility]. The patient progressively complains of leg swelling orthopnea and PND. She states that sometime she has transient chest pain but is not of this symptom at this time. She denies pleuritic pain she denies cough fever and chills. She admits that she has been taking her medicine very irregularly to include one dose yesterday and nothing today. The patient is a poor historian with respect to her history of congenital heart disease. She had a left posterior thoracotomy for "they had to cut a cord". Scanning her echo I can't see any obvious congenital heart disease. Perhaps the patient had a persistent patent ductus arteriosus that required thoracotomy for ligation. I don't find her exact history and previous records with respect to her congenital heart disease. Complaint: shortness of breath, chest pain (intermittently) -: days(s), year(s) (chronically for years but worse over the past few days) Severity: moderate Consistency: intermittent Improves With: nothing Worsens With: nothing Known History Of: congestive heart failure Associated Symptoms: denies other symptoms (except as above indicated) - Related Data Home Medications Medication Instructions Recorded Confirmed Last Taken Furosemide [Lasix] 20 mg PO BID 03/05/18 03/05/18 Unknown Losartan [Cozaar] 50 mg PO QDAY 03/05/18 03/05/18 03/05/18 Previous Rx's Medication Instructions Recorded Last Taken Type ALBUTEROL Inhaler [ProAir HFA 2 puff IH QID PRN #1 device 02/06/18 Unknown Rx Inhaler] Metoprolol [Lopressor TAB] 50 mg PO BID #60 tablet 02/06/18 Unknown Rx Clopidogrel [Plavix] 75 mg PO QDAY #30 tablet 03/07/18 Unknown Rx Potassium Chloride 10 meq PO QDAY #30 capsule.er 03/07/18 Unknown Rx Allergies Allergy/AdvReac Type Severity Reaction Status Date / Time aspirin Allergy Hives Verified 12/07/17 19:51 strawberry Allergy Swelling Verified 03/03/18 04:41 ED Review of Systems ROS: Stated complaint: SOB,CHEST PAIN, Other details as noted in HPI Constitutional: denies: chills, fever Eyes: denies: eye pain, eye discharge, vision change ENT: denies: ear pain, throat pain Respiratory: orthopnea, shortness of breath, SOB with exertion, other (PND). denies: cough, wheezing Cardiovascular: chest pain (intermittently but not currently), edema. denies: palpitations Endocrine: no symptoms reported Gastrointestinal: denies: abdominal pain, nausea, diarrhea Genitourinary: denies: urgency, dysuria, discharge Musculoskeletal: other (leg edema). denies: back pain, joint swelling, arthralgia Skin: denies: rash, lesions Neurological: denies: headache, weakness, paresthesias Psychiatric: denies: anxiety, depression Hematological/Lymphatic: denies: easy bleeding, easy bruising ED Past Medical Hx - Past Medical History Hx Hypertension: Yes Hx CVA: Yes (2015) Hx Congestive Heart Failure: Yes Hx Headaches / Migraines: Yes Hx Asthma: Yes Additional medical history: brain aneurysm x2 - Surgical History Hx Coronary Stent: Yes Additional Surgical History: thyroid removal, open heart sx 1972 for congenital heart disease - Social History Smoking Status: Current Every Day Smoker Substance Use Type: None - Medications Home Medications: Home Medications Medication Instructions Recorded Confirmed Last Taken Type ALBUTEROL Inhaler [ProAir HFA 2 puff IH QID PRN #1 device 02/06/18 03/05/18 Unknown Rx Inhaler] Metoprolol [Lopressor TAB] 50 mg PO BID #60 tablet 02/06/18 03/05/18 Unknown Rx Furosemide [Lasix] 20 mg PO BID 03/05/18 03/05/18 Unknown History Losartan [Cozaar] 50 mg PO QDAY 03/05/18 03/05/18 03/05/18 History Clopidogrel [Plavix] 75 mg PO QDAY #30 tablet 03/07/18 Unknown Rx Potassium Chloride 10 meq PO QDAY #30 capsule.er 03/07/18 Unknown Rx ED Physical Exam - General Limitations: Physical Limitation General appearance: alert, in no apparent distress, obese - Head Head exam: Present: atraumatic, normocephalic - Eye Eye exam: Present: normal appearance, PERRL, EOMI. Absent: scleral icterus - ENT ENT exam: Present: mucous membranes moist - Neck Neck exam: Present: normal inspection. Absent: tenderness, meningismus - Respiratory Respiratory exam: Present: normal lung sounds bilaterally, rhonchi (mild scattered breath sounds are somewhat distant), decreased breath sounds, other ( work of breathing is normal). Absent: accessory muscle use, prolonged expiratory - Cardiovascular Cardiovascular Exam: Present: regular rate, normal rhythm. Absent: systolic murmur, diastolic murmur, rubs, gallop - GI/Abdominal GI/Abdominal exam: Present: soft, normal bowel sounds. Absent: distended, tenderness, guarding, rebound, rigid - Extremities Exam Extremities exam: Present: pedal edema, other (bilateral 2+ leg edema and pedal edema) - Back Exam Back exam: Present: normal inspection, other (left posterior thoracotomy scar) - Neurological Exam Neurological exam: Present: alert, oriented X3, CN II-XII intact. Absent: motor sensory deficit - Psychiatric Psychiatric exam: Present: normal affect, normal mood - Skin Skin exam: Present: warm, dry, intact, normal color, other (thoracotomy scar left posterior well-healed hyperpigmented). Absent: rash ED Course Vital Signs 05/24/18 05/24/18 05/24/18 01:29 01:55 08:52 Temperature 99.3 F 99.3 F Pulse Rate 102 H 104 H 95 H Respiratory 18 18 17 Rate Blood Pressure 151/93 151/93 181/104 Blood Pressure [Right] O2 Sat by Pulse 98 98 96 Oximetry 05/24/18 05/24/18 09:28 09:31 Temperature Pulse Rate 90 90 Respiratory 26 H Rate Blood Pressure Blood Pressure 144/89 [Right] O2 Sat by Pulse 100 Oximetry - Reevaluation(s) Reevaluation #1: EXAM: XR CHEST ROUTINE 2V HISTORY: Shortness of breath TECHNIQUE: 2 views of the chest. PRIORS: 03/02/2018 FINDINGS: Cardiac silhouette is enlarged without change. There is mild prominence of the central pulmonary vascularity and interstitial markings. The bones and soft tissues are unremarkable. IMPRESSION: Findings are consistent with acute CHF. No significant interval change. 05/24/18 09:23 05/24/18 09:47 The patient was given Lasix and nitrates. She has previously been on Plavix. Reevaluation #2: Spoke with Dr. Ayala. Dr. Camacho to admit. Patient admitted in stable condition. 05/24/18 09:48 ED Medical Decision Making - Lab Data Result diagrams: 05/24/18 02:00 05/24/18 02:00 Laboratory Results - last 24 hr 05/24/18 05/24/18 05/24/18 02:00 02:00 02:00 WBC 5.8 RBC 4.16 Hgb 10.7 Hct 32.9 MCV 79 MCH 26 L MCHC 33 RDW 16.0 H Plt Count 238 Lymph % (Auto) 39.7 H Arthur % (Auto) 10.5 H Eos % (Auto) 6.1 H Baso % (Auto) 0.5 Lymph # 2.3 Arthur # 0.6 Eos # 0.4 Baso # 0.0 Seg Neutrophils % 43.2 Seg Neutrophils # 2.5 Sodium 140 Potassium 3.6 Chloride 100.9 Carbon Dioxide 27 Anion Gap 16 BUN 9 Creatinine 0.7 Estimated GFR > 60 BUN/Creatinine Ratio 13 Glucose 148 H Calcium 9.1 Troponin T < 0.010 NT-Pro-B Natriuret Pep 617.6 HCG, Qual Negative - EKG Data -: EKG Interpreted by Me EKG shows normal: sinus rhythm Rate: normal - EKG Data Interpretation: no acute changes, nonspecific ST-T wave victor m (mild) - Radiology Data Radiology results: report reviewed Critical care attestation.: If time is entered above; I have spent that time in minutes in the direct care of this critically ill patient, excluding procedure time. ED Disposition Clinical Impression: Nonischemic cardiomyopathy CHF exacerbation Qualifiers: Heart failure type: combined systolic and diastolic Qualified Code(s): I50.43 - Acute on chronic combined systolic (congestive) and diastolic (congestive) heart failure Disposition: OP ADMIT IP TO THIS HOSP Is pt being admited?: Yes Does the pt Need Aspirin: Yes Condition: Stable Referrals: PRIMARY CARE, [Primary Care Provider] - 3-5 Days Time of Disposition: 09:48
[2018-05-24] MEDS ORDERED: PLAVIX PO ONE (09:49)
[2018-05-24 10:30] LABS: INR 1.05 (0.87-1.13)
[2018-05-24 10:31] LABS: Partial Thromboplastin Time 28.6 Sec. (24.2-36.6)
[2018-05-24] MEDS ORDERED: TYLENOL PO PRN (10:40)
[2018-05-24] MEDS ORDERED: PERCOCET 5/325 PO PRN (10:40)
[2018-05-24] MEDS ORDERED: MORPHINE IV PRN (10:40)
[2018-05-24] MEDS ORDERED: SODIUM CHLORIDE FLUSH SYRINGE 10 ML IV PRN (10:40)
[2018-05-24] MEDS ORDERED: ZOFRAN IV PRN (10:40)
[2018-05-24] MEDS ORDERED: NITROSTAT SL PRN (10:40)
[2018-05-24] MEDS ORDERED: XANAX PO PRN (10:40)
[2018-05-24 10:41] LABS: Creatine Kinase MB 1.2 ng/mL (0.0-4.0)
[2018-05-24 10:43] LABS: Alanine Aminotransferase 17 units/L (7-56); Albumin 3.9 g/dL (3.9-5)
[2018-05-24] MEDS ORDERED: PROAIR IH PRN (10:44)
[2018-05-24 10:52] LABS: Amphetamine Screen,Urine PRESUMPTIVE NEGATIVE; Benzodiazepines Screen,Urine PRESUMPTIVE NEGATIVE; Cannabinoid Screen,Urine PRESUMPTIVE NEGATIVE; Cocaine Screen,Urine PRESUMPTIVE NEGATIVE; Methadone Screen,Urine PRESUMPTIVE NEGATIVE; Opiate Screen,Urine PRESUMPTIVE NEGATIVE
[2018-05-24 10:53] LABS: Bilirubin,Direct < 0.2 mg/dL (0-0.2)
[2018-05-24] MEDS ORDERED: LASIX IV SCH (11:00)
[2018-05-24] MEDS ORDERED: PROVENTIL IH PRN (11:01)
[2018-05-24] MEDS: COZAAR PO SCH (11:48)
[2018-05-24] MEDS: LOVENOX SUB-Q SCH (11:49)
--- NOTE | 2018-05-24 12:18 | History and Physical Report ---
History of Present Illness Date of examination: 05/24/18 Date of admission: 05/24/18 12:01 Chief complaint: Shortness of breath. History of present illness: Patient 52-year-old female that presents with a chief complaint of shortness of breath, dyspnea on exertion and lower extremity edema. Patient states she knows how bad her failure is doing by the way she walks in the swelling of her extremities. At present patient only has some mild distress. Able to speak in full sentences. Patient admits to medical noncompliance. Patient's encephalopathy has resolved. He still alert oriented able to ask answer questions appropriately. Poor historian and noncompliance and no evidence of encephalopathy. Past History Past Medical History: arrhythmia, anemia, arthritis, CAD, hypertension, hyperlipidemia, migraines, renal failure. denies: acute [place], atrial fib, dialysis, DVT, ESRD, hypothyroidism, liver disease, PVD, pulmonary embolism, seizures, stroke, sarcoidosis Past Surgical History: Other (surgery on arm for broken arm.) Social history: single, lives with family, smoking, full code Family history: hypertension Medications and Allergies Allergies Allergy/AdvReac Type Severity Reaction Status Date / Time aspirin Allergy Hives Verified 12/07/17 19:51 strawberry Allergy Swelling Verified 03/03/18 04:41 Home Medications Medication Instructions Recorded Confirmed Last Taken Type ALBUTEROL Inhaler [ProAir HFA 2 puff IH QID PRN #1 device 02/06/18 03/05/18 Unknown Rx Inhaler] Metoprolol [Lopressor TAB] 50 mg PO BID #60 tablet 02/06/18 03/05/18 Unknown Rx Furosemide [Lasix] 20 mg PO BID 03/05/18 03/05/18 Unknown History Losartan [Cozaar] 50 mg PO QDAY 03/05/18 03/05/18 03/05/18 History Clopidogrel [Plavix] 75 mg PO QDAY #30 tablet 03/07/18 Unknown Rx Potassium Chloride 10 meq PO QDAY #30 capsule.er 03/07/18 Unknown Rx Active Meds: Active Medications Acetaminophen (Tylenol) 650 mg PO Q4H PRN PRN Reason: Pain MILD(1-3)/Fever >100.5/JIMENEZ Albuterol (Proventil) 2.5 mg IH Q4H PRN PRN Reason: Shortness Of Breath Alprazolam (Xanax) 0.125 mg PO Q8H PRN PRN Reason: Agitation Carvedilol (Coreg) 3.125 mg PO BID [facility] Clopidogrel Bisulfate (Plavix) 75 mg PO QDAY [facility] Enoxaparin Sodium (Lovenox) 40 mg SUB-Q QDAY [facility] Last Admin: 05/24/18 11:49 Dose: 40 mg Furosemide (Lasix) 40 mg IV ONCE [facility] Losartan Potassium (Cozaar) 50 mg PO QDAY [facility] Last Admin: 05/24/18 11:48 Dose: 50 mg Morphine Sulfate (Morphine) 2 mg IV Q5MIN PRN PRN Reason: Chest Pain Nitroglycerin (Nitrostat) 0.4 mg SL .Q5MIN PRN PRN Reason: Chest Pain Ondansetron HCl (Zofran) 4 mg IV Q8H PRN PRN Reason: Nausea And Vomiting Oxycodone/Acetaminophen (Percocet 5/325) 1 tab PO Q6H PRN PRN Reason: Pain, Moderate (4-6) Sodium Chloride (Sodium Chloride Flush Syringe 10 Ml) 10 ml IV BID [facility] Sodium Chloride (Sodium Chloride Flush Syringe 10 Ml) 10 ml IV PRN PRN PRN Reason: LINE FLUSH Review of Systems Constitutional: weight gain, fatigue, weakness, no weight loss, no fever, no chills, no sweats, no night sweats, no anorexia, no malaise, no lethargy, no chronic headaches, no poor appetite, no daytime sleepiness, no chronic pain Ears, nose, mouth and throat: no decreased hearing, no nose pain, no nasal congestion, no nasal discharge, no bleeding gums, no dental pain, no dysphagia, no hoarseness, no swelling in mouth, no swelling in throat, no post-nasal drip, no vertigo, no neck fullness/pressure, no other Breasts: deferred Cardiovascular: chest pain, orthopnea, edema, shortness of breath, dyspnea on exertion, high blood pressure, leg edema, decreased exercise tolerance, no palpitations, no rapid/irregular heart beat, no syncope, no lightheadedness, no paroxysmal nocturnal dyspnea, no claudication, no phlebitis Respiratory: cough, shortness of breath, dyspnea on exertion, other (morbid obesity), no cough with sputum, no excessive sputum, no hemoptysis, no congestion, no pleurisy, no pain on inspiration, no sleep apnea, no respiratory infections, no home oxygen Gastrointestinal: no abdominal pain, no diarrhea, no constipation, no change in bowel habits, no hematemesis, no hematochezia, no heartburn, no lactose intolerance, no other Genitourinary Female: no dyspareunia, no flank pain, no menorrhagia, no urinary frequency, no urge incontinence, no difficulty voiding, no nocturia, no vaginal itching, no genital sores, no decreased libido, no hot flashes, no prolapse symptoms Menstruation: no period heavy Rectal: no incontinence, no bleeding Musculoskeletal: no neck stiffness, no shooting arm pain, no arm numbness/ tingling, no low back pain, no shooting leg pain, no redness of joints, no hot joints, no muscle weakness, no muscle cramps, no atrophy, no limitation of motion, no gait dysfunction, no frequent falls, no loss of height Neurological: no transient paralysis, no weakness, no numbness, no syncope, no tremors, no convulsions, no aphasia, no change in mentation, no changes in smell /taste, no double vision, no burning pain, no paralysis Psychiatric: anxiety, sleep disturbances, no change in sleep habits, no hypersomnia, no suicidal ideation, no sadness/tearfullness, no mood swings Endocrine: no cold intolerance, no heat intolerance, no polyphagia, no polydipsia, no polyuria, no excessive sweating, no increase in ring/shoe/hat size, no proptosis, no low blood sugars, no recent glucocorticoid use Hematologic/Lymphatic: no easy bruising Allergic/Immunologic: no urticaria, no allergic rhinitis, no persistent infections, no angioedema Exam - Constitutional Vitals: Temp Pulse Resp BP Pulse Ox 99.2 F 88 22 136/77 95 05/24/18 11:58 05/24/18 11:58 05/24/18 11:58 05/24/18 11:58 05/24/18 11:58 General appearance: Present: no acute distress, well-nourished - EENT Eyes: Present: PERRL ENT: hearing intact, clear oral mucosa - Neck Neck: Present: supple, normal ROM - Respiratory Respiratory effort: normal Respiratory: bilateral: diminished, rhonchi (bilateral bases.) - Cardiovascular Heart Sounds: Present: S1 & S2. Absent: rub, click - Extremities Extremities: pulses symmetrical, Full ROM Extremity abnormal: edema (+1-2 pitting edema), other (generalized weakness) Peripheral Pulses: within normal limits - Abdominal General gastrointestinal: Present: soft, non-tender, non-distended, normal bowel sounds Female genitourinary: Present: normal - Integumentary Integumentary: Present: clear, warm, dry - Musculoskeletal Musculoskeletal: gait normal, strength equal bilaterally - Psychiatric Psychiatric: appropriate mood/affect, intact judgment & insight - Neurologic Neurologic: CNII-XII intact, moves all extremities Results - Labs CBC & Chem 7: 05/24/18 02:00 05/24/18 02:00 Labs: Laboratory Last Values WBC 5.8 K/mm3 (4.5-11.0) 05/24/18 02:00 RBC 4.16 M/mm3 (3.65-5.03) 05/24/18 02:00 Hgb 10.7 gm/dl (10.1-14.3) 05/24/18 02:00 Hct 32.9 % (30.3-42.9) 05/24/18 02:00 MCV 79 fl (79-97) 05/24/18 02:00 MCH 26 pg (28-32) L 05/24/18 02:00 MCHC 33 % (30-34) 05/24/18 02:00 RDW 16.0 % (13.2-15.2) H 05/24/18 02:00 Plt Count 238 K/mm3 (140-440) 05/24/18 02:00 Lymph % (Auto) 39.7 % (13.4-35.0) H 05/24/18 02:00 [place] % (Auto) 10.5 % (0.0-7.3) H 05/24/18 02:00 Eos % (Auto) 6.1 % (0.0-4.3) H 05/24/18 02:00 Baso % (Auto) 0.5 % (0.0-1.8) 05/24/18 02:00 Lymph # 2.3 K/mm3 (1.2-5.4) 05/24/18 02:00 [place] # 0.6 K/mm3 (0.0-0.8) 05/24/18 02:00 Eos # 0.4 K/mm3 (0.0-0.4) 05/24/18 02:00 Baso # 0.0 K/mm3 (0.0-0.1) 05/24/18 02:00 Seg Neutrophils % 43.2 % (40.0-70.0) 05/24/18 02:00 Seg Neutrophils # 2.5 K/mm3 (1.8-7.7) 05/24/18 02:00 PT 14.3 Sec. (12.2-14.9) 05/24/18 10:08 INR 1.05 (0.87-1.13) 05/24/18 10:08 APTT 28.6 Sec. (24.2-36.6) 05/24/18 10:08 Sodium 140 mmol/L (137-145) 05/24/18 02:00 Potassium 3.6 mmol/L (3.6-5.0) 05/24/18 02:00 Chloride 100.9 mmol/L (98-107) 05/24/18 02:00 Carbon Dioxide 27 mmol/L (22-30) 05/24/18 02:00 Anion Gap 16 mmol/L 05/24/18 02:00 BUN 9 mg/dL (7-17) 05/24/18 02:00 Creatinine 0.7 mg/dL (0.7-1.2) 05/24/18 02:00 Estimated GFR > 60 ml/min 05/24/18 02:00 BUN/Creatinine Ratio 13 % 05/24/18 02:00 Glucose 148 mg/dL (65-100) H 05/24/18 02:00 Calcium 9.1 mg/dL (8.4-10.2) 05/24/18 02:00 Magnesium 1.80 mg/dL (1.7-2.3) 05/24/18 10:08 Total Bilirubin 0.50 mg/dL (0.1-1.2) 05/24/18 10:08 Direct Bilirubin < 0.2 mg/dL (0-0.2) 05/24/18 10:08 Indirect Bilirubin 0.3 mg/dL 05/24/18 10:08 AST 24 units/L (5-40) 05/24/18 10:08 ALT 17 units/L (7-56) 05/24/18 10:08 Alkaline Phosphatase 87 units/L (35-129) 05/24/18 10:08 Total Creatine Kinase 73 units/L (30-135) 05/24/18 10:08 CK-MB (CK-2) 1.2 ng/mL (0.0-4.0) 05/24/18 10:08 CK-MB (CK-2) Rel Index 1.6 (0-4) 05/24/18 10:08 Troponin T < 0.010 ng/mL (0.00-0.029) 05/24/18 10:08 NT-Pro-B Natriuret Pep 617.6 pg/mL (0-900) 05/24/18 02:00 Total Protein 8.1 g/dL (6.3-8.2) 05/24/18 10:08 Albumin 3.9 g/dL (3.9-5) 05/24/18 10:08 Albumin/Globulin Ratio 0.9 % 05/24/18 10:08 HCG, Qual Negative (Negative) 05/24/18 02:00 Urine Opiates Screen Presumptive negative 05/24/18 10:32 Urine Methadone Screen Presumptive negative 05/24/18 10:32 Ur Barbiturates Screen Presumptive negative 05/24/18 10:32 Ur Phencyclidine Scrn Presumptive negative 05/24/18 10:32 Ur Amphetamines Screen Presumptive negative 05/24/18 10:32 U Benzodiazepines Scrn Presumptive negative 05/24/18 10:32 Urine Cocaine Screen Presumptive negative 05/24/18 10:32 U Marijuana (THC) Screen Presumptive negative 05/24/18 10:32 Drugs of Abuse Note Disclamer 05/24/18 10:32 - Imaging and Cardiology EKG: image reviewed Chest x-ray: image reviewed CT scan - chest: report reviewed, image reviewed Assessment and Plan Advance Directives: Yes (full code) VTE prophylaxis?: Chemical Plan of care discussed with patient/family: Yes - Patient Problems (1) Coronary artery disease Current Visit: Yes Status: Acute Plan to address problem: Patient with history of coronary artery disease. Continue Imdur. Patient chest pain-free at this particular time. Had left heart cath which was patent in 2017. Does not appear to have ischemia at this time. (2) CHF exacerbation Current Visit: Yes Status: Acute Qualifiers: Heart failure type: combined systolic and diastolic Qualified Code(s): I50.43 - Acute on chronic combined systolic (congestive) and diastolic ( congestive) heart failure Plan to address problem: Patient with congestive heart failure. Appears to have acute systolic heart failure. Lower extremity edema chest x-ray consistent with pulmonary edema. We 'll add patient on Lasix diuretics. Supplement potassium correction. Beta melissa. NEERAJ inhibitor and aggressive diuresis with IV Lasix. Should be able to turn around relatively quick. We'll obtain an additional echocardiogram prior to discharge as well. Etiology secondary to medicinal noncompliance (3) Nonischemic cardiomyopathy Current Visit: Yes Status: Acute (4) Obesity Current Visit: No Status: Acute Plan to address problem: Educated about weight loss healthy eating habits and lifestyle modifications. (5) Hypertension Current Visit: No Status: Resolved Qualifiers: Hypertension type: essential hypertension Qualified Code(s): I10 - Essential (primary) hypertension (6) Noncompliance with medication regimen Current Visit: No Status: Chronic Plan to address problem: Education about the dangers of not using medication. (7) Acute metabolic encephalopathy Current Visit: Yes Status: Resolved
[2018-05-24] MEDS: COREG PO SCH (21:42)
[2018-05-24] MEDS: SODIUM CHLORIDE FLUSH SYRINGE 10 ML IV SCH (21:43)
[2018-05-25 08:53] LABS: Alanine Aminotransferase 13 units/L (7-56); Albumin 3.4 g/dL (3.9-5); BUN/Creatinine Ratio 22; Blood Urea Nitrogen 13 mg/dL (7-17); Calcium 9.4 mg/dL (8.4-10.2); Hemolysis Index 0
--- NOTE | 2018-05-25 09:40 | Consultation ---
History of Present Illness Consult date: 05/25/18 Consult reason: congestive heart failure History of present illness: 52-year-old woman who presented with progressive shortness of breath and chest pain. Cardiac consultation was requested. Chest x-ray reports CHF. Patient denies palpitations. There was no syncope. EKG is normal sinus rhythm, poor R- wave progression, no acute ischemic changes. Patient has a history of nonischemic cardiomyopathy. She underwent a cardiac cath at [facility] in December 2015. There was no significant coronary disease. Her most recent echocardiogram showed a moderate to severe cardiomyopathy with ejection fraction 20-25%. The patient admits to noncompliance with medical therapy including antihypertensive therapy, and noncompliance with outpatient physician follow-up visits. Past History Social history: single, lives with family, smoking, full code Family history: hypertension Medications and Allergies Allergies Allergy/AdvReac Type Severity Reaction Status Date / Time aspirin Allergy Hives Verified 12/07/17 19:51 strawberry Allergy Swelling Verified 03/03/18 04:41 Home Medications Medication Instructions Recorded Confirmed Last Taken Type ALBUTEROL Inhaler [ProAir HFA 2 puff IH QID PRN #1 device 02/06/18 03/05/18 Unknown Rx Inhaler] Metoprolol [Lopressor TAB] 50 mg PO BID #60 tablet 02/06/18 03/05/18 Unknown Rx Furosemide [Lasix] 20 mg PO BID 03/05/18 03/05/18 Unknown History Losartan [Cozaar] 50 mg PO QDAY 03/05/18 03/05/18 03/05/18 History Clopidogrel [Plavix] 75 mg PO QDAY #30 tablet 03/07/18 Unknown Rx Potassium Chloride 10 meq PO QDAY #30 capsule.er 03/07/18 Unknown Rx Active Meds: Active Medications Acetaminophen (Tylenol) 650 mg PO Q4H PRN PRN Reason: Pain MILD(1-3)/Fever >100.5/JIMENEZ Albuterol (Proventil) 2.5 mg IH Q4H PRN PRN Reason: Shortness Of Breath Alprazolam (Xanax) 0.125 mg PO Q8H PRN PRN Reason: Agitation Carvedilol (Coreg) 3.125 mg PO BID [facility] Last Admin: 05/24/18 21:42 Dose: 3.125 mg Clopidogrel Bisulfate (Plavix) 75 mg PO QDAY [facility] Enoxaparin Sodium (Lovenox) 40 mg SUB-Q QDAY [facility] Last Admin: 05/24/18 11:49 Dose: 40 mg Furosemide (Lasix) 40 mg IV ONCE [facility] Losartan Potassium (Cozaar) 50 mg PO QDAY [facility] Last Admin: 05/24/18 11:48 Dose: 50 mg Morphine Sulfate (Morphine) 2 mg IV Q5MIN PRN PRN Reason: Chest Pain Nitroglycerin (Nitrostat) 0.4 mg SL .Q5MIN PRN PRN Reason: Chest Pain Ondansetron HCl (Zofran) 4 mg IV Q8H PRN PRN Reason: Nausea And Vomiting Oxycodone/Acetaminophen (Percocet 5/325) 1 tab PO Q6H PRN PRN Reason: Pain, Moderate (4-6) Sodium Chloride (Sodium Chloride Flush Syringe 10 Ml) 10 ml IV BID [facility] Last Admin: 05/24/18 21:43 Dose: 10 ml Sodium Chloride (Sodium Chloride Flush Syringe 10 Ml) 10 ml IV PRN PRN PRN Reason: LINE FLUSH Physical Examination Vital Signs Temp Pulse Resp BP Pulse Ox 99.3 F 102 H 18 151/93 98 05/24/18 01:29 05/24/18 01:29 05/24/18 01:29 05/24/18 01:29 05/24/18 01:29 General appearance: no acute distress HEENT: Positive: PERRL Cardiac: Positive: Reg Rate and Rhythm Lungs: Positive: Decreased Breath Sounds Neuro: Positive: Grossly Intact Extremities: Absent: edema Results 05/24/18 02:00 05/25/18 07:57 Cardiac Enzymes 05/24/18 05/25/18 Range/Units 10:08 07:57 AST 24 19 (5-40) units/L CK-MB (CK-2) 1.2 (0.0-4.0) ng/mL Coagulation 05/24/18 Range/Units 10:08 PT 14.3 (12.2-14.9) Sec. INR 1.05 (0.87-1.13) APTT 28.6 (24.2-36.6) Sec. Comprehensive Metabolic Panel 05/24/18 05/25/18 Range/Units 10:08 07:57 Sodium 141 (137-145) mmol/L Potassium 4.1 (3.6-5.0) mmol/L Chloride 102.5 (98-107) mmol/L Carbon Dioxide 28 (22-30) mmol/L BUN 13 (7-17) mg/dL Creatinine 0.6 L (0.7-1.2) mg/dL Glucose 96 (65-100) mg/dL Calcium 9.4 (8.4-10.2) mg/dL Direct Bilirubin < 0.2 (0-0.2) mg/dL Indirect Bilirubin 0.3 mg/dL AST 24 19 (5-40) units/L ALT 17 13 (7-56) units/L Alkaline Phosphatase 87 74 (35-129) units/L Total Protein 8.1 6.8 (6.3-8.2) g/dL Albumin 3.9 3.4 L (3.9-5) g/dL Assessment and Plan Acute systolic heart failure Hypertension Nonischemic CMP Cardiac catheterization report from [facility] in December 2015 reports no significant coronary disease. February 2018 echocardiogram showed a moderate to severe cardiomyopathy with ejection fraction 20-25%. Tobacco abuse Morbid obesity Noncompliance with medical therapy Recommendations: Medical therapy for heart failure to include diuretic therapy, afterload reducing therapy, beta blockers and oral antiplatelet therapy. Fluid/sodium restriction.
--- NOTE | 2018-05-25 10:06 | Progress Note ---
Assessment and Plan -Acute systolic heart failure Strict input and output charts, daily with, ACEI, beta blockers, diuretics, ASA, Statin, echocardiogram. Cardiology consulted. - Nonischemic CMP Cardiac catheterization report from [facility] in December 2015 reports no significant coronary disease. February 2018 echocardiogram showed a moderate to severe cardiomyopathy with ejection fraction 20-25%. - Hypertension Optimized blood pressure control with NEERAJ inhibitor blockers - Hypoglycemia Obtain A1c Monitor glycemic level - Morbid obesity Dietary counseling done Tobacco abuse -Tobacco cessation counseling and done - Noncompliance with medical therapy Counseling on noncompliance was done -DVT prophylaxis with Lovenox Subjective Date of service: 05/25/18 Principal diagnosis: acute systolic heart failure, shortness of breath, Encephalopathy Interval history: Patient seen and and examined. Sitting up in bed with family members in the room. Eaten fried chicken biscuits Objective - Constitutional Vitals: Vital Signs - 12hr 05/24/18 05/24/18 05/25/18 22:59 23:21 04:02 Temperature 99.3 F 98.7 F Pulse Rate 94 H 93 H Respiratory 20 20 Rate Blood Pressure 129/83 146/75 O2 Sat by Pulse 98 94 97 Oximetry 05/25/18 05:23 Temperature 98.7 F Pulse Rate 85 Respiratory 18 Rate Blood Pressure 118/64 O2 Sat by Pulse 94 Oximetry General appearance: Present: no acute distress, well-nourished - EENT Eyes: PERRL, EOM intact ENT: hearing intact, clear oral mucosa Ears: bilateral: normal - Neck Neck: supple, normal ROM - Respiratory Respiratory effort: normal Respiratory: bilateral: CTA - Breasts Breasts: deferred - Cardiovascular Rhythm: regular Heart Sounds: Present: S1 & S2. Absent: gallop, rub Extremities: pulses intact, No edema, normal color, Full ROM - Gastrointestinal General gastrointestinal: Present: soft, non-tender, non-distended, normal bowel sounds - Integumentary Integumentary: clear, warm, dry - Musculoskeletal Musculoskeletal: strength equal bilaterally - Neurologic Neurologic: moves all extremities - Psychiatric Psychiatric: appropriate mood/affect, cooperative - Labs CBC & Chem 7: 05/24/18 02:00 05/25/18 07:57 Labs: Abnormal lab results 05/25/18 Range/Units 07:57 Creatinine 0.6 L (0.7-1.2) mg/dL Albumin 3.4 L (3.9-5) g/dL
[2018-05-25] MEDS: COREG PO SCH ×2 (11:43→22:21)
[2018-05-25] MEDS: COZAAR PO SCH (11:44)
[2018-05-25] MEDS: LOVENOX SUB-Q SCH (11:45)
[2018-05-25] MEDS: PLAVIX PO SCH (11:46)
[2018-05-25] MEDS: SODIUM CHLORIDE FLUSH SYRINGE 10 ML IV SCH ×2 (11:47→22:21)
--- NOTE | 2018-05-26 08:46 | Discharge Summary ---
Providers - Providers Date of Admission: 05/24/18 12:01 Date of discharge: 05/26/18 Attending physician: JOSÉ BEAVERS 05/24/18 10:40 Consult to Physician [CONS] Routine Comment: Consulting Provider: LUIS DIEGO Physician Instructions: Reason For Exam: chest pain Primary care physician: ELDER ASSISTANT Hospitalization Reason for admission: severe shortness of breath and dyspnea on exertion. Condition: Stable Pertinent studies: Chest x-ray showed pulmonary congestion consistent with congestive heart failure Procedures: None Hospital course: Patient 52-year-old female that presents with a chief complaint of shortness of breath, dyspnea on exertion and lower extremity edema. Patient states she knows how bad her failure is doing by the way she walks in the swelling of her extremities. On presentation to emergency department patient was slightly dyspneic. Review of records from [facility] patient had an echo transition from water of 2015 that showed normal coronary arteries. Echocardiogram of February 2018 showed ejection fraction of 20-25%. Patient continues to smoke. On admission pt was commenced on strict input and outputs, daily weights, Acei, beta blockers, diuretics. Shortness of breath improved. 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 She been diagnosed with nonischemic cardiomyopathy Disposition: TO HOME OR SELFCARE Time spent for discharge: 40 min - Discharge Diagnoses (1) Nonischemic cardiomyopathy Status: Acute (2) Acute metabolic encephalopathy Status: Resolved (3) Acute diastolic heart failure Status: Acute (4) Obesity Status: Acute Core Measure Documentation - Palliative Care Palliative Care/ Comfort Measures: Not Applicable - Core Measures Any of the following diagnoses?: heart failure - Heart Failure Discharge Requirements NEERAJ/ARB for LVSD if EF <40%: Yes Beta melissa at discharge: Yes Exam - Physical Exam Narrative exam: Constitutional: Well-nourished well-developed. Morbidly obese. In no distress Head: Normocephalic atraumatic Eyes: Pupils are equal round and reactive to light Nose: No enlarged turbinates, no septal deviation. Mouth: Moist mucous membranes. Neck: Supple no thyromegaly. No bruit. No JVD Heart: Regular rate and rhythm, S1-S2 abnormal. No rubs murmurs or gallop Lungs: Clear to auscultation bilaterally no rales or rhonchi Abdomen: Soft, nontender. Bowel sound are present. Extremities: No edema no cyanosis and no clubbing. Neuro: Alert oriented Oriented x3. No focal sensory or motor deficit. Skin: No rashes no hyperemic spots Psychiatry: Euthymic. Calm. - Constitutional Vitals: Temp Pulse Resp BP Pulse Ox 98.4 F 85 20 135/85 98 05/26/18 05:36 05/26/18 05:36 05/26/18 05:47 05/26/18 05:36 05/26/18 08:31 Plan Activity: fall precautions Weight Bearing Status: Weight Bear as Tolerated Diet: regular Follow up with: PRIMARY CARE, [Primary Care Provider] - 3-5 Days Prescriptions: ALBUTEROL Inhaler [ProAir HFA Inhaler] 2 puff IH QID PRN #1 device PRN Reason: Shortness Of Breath ALBUTEROL NEB's [Proventil 0.083% NEBS] 2.5 mg IH Q4H PRN #100 nebu PRN Reason: Shortness Of Breath Carvedilol [Coreg] 3.125 mg PO BID #60 tablet Clopidogrel [Plavix] 75 mg PO QDAY #30 tablet Furosemide [Lasix] 20 mg PO BID #60 tablet Losartan [Cozaar] 50 mg PO QDAY #30 tablet Metoprolol [Lopressor TAB] 50 mg PO BID #60 tablet oxyCODONE /ACETAMINOPHEN [Percocet 5/325 mg] 1 tab PO Q6H PRN #20 tablet PRN Reason: Pain, Moderate (4-6) Potassium Chloride 10 meq PO QDAY #30 capsule.er
--- NOTE | 2018-05-26 09:21 | Progress Note ---
Assessment and Plan Acute systolic heart failure s/p noncompliance with dietary restriction and medical therapy Hypertension Nonischemic CMP Cardiac catheterization report from [facility] in December 2015 reports no significant coronary disease. February 2018 echocardiogram showed a moderate to severe cardiomyopathy with ejection fraction 20-25%. Tobacco abuse Morbid obesity Recommendations: Continue medical therapy for heart failure to include diuretic therapy, afterload reducing therapy, beta blockers and oral antiplatelet therapy. Advise fluid/sodium restriction. Stable cardiac navarrete. Subjective Date of service: 05/26/18 Principal diagnosis: acute systolic heart failure, shortness of breath, Encephalopathy Interval history: Patient has no complaints. Reports she is feeling better. Objective Vital Signs Temp Pulse Pulse Resp BP BP Pulse Ox 05/26/18 08:31 98 05/26/18 05:47 20 05/26/18 05:36 98.4 F 85 28 H 135/85 97 05/25/18 21:50 20 05/25/18 21:45 98.3 F 83 28 H 109/61 96 05/25/18 19:52 98 05/25/18 16:11 98.8 F 82 22 120/77 95 05/25/18 16:10 98.8 F 82 22 120/77 98 05/25/18 12:14 99.1 F 89 18 155/94 96 05/25/18 11:44 83 127/71 05/25/18 11:43 83 127/71 05/25/18 10:30 98 05/25/18 10:00 86 - Physical Examination General: No Apparent Distress HEENT: Positive: PERRL Cardiac: Positive: Reg Rate and Rhythm Lungs: Positive: Decreased Breath Sounds Neuro: Positive: Grossly Intact Extremities: Absent: edema
[2018-05-26] MEDS: PLAVIX PO SCH (10:12)
[2018-05-26] MEDS: COREG PO SCH (10:12)
[2018-05-26 10:13] VITALS: BP 128/77
[2018-05-26] MEDS: LOVENOX SUB-Q SCH (10:13)
[2018-05-26] MEDS: SODIUM CHLORIDE FLUSH SYRINGE 10 ML IV SCH (10:13)
[2018-05-26] MEDS: COZAAR PO SCH (10:13)
== END 2018-05-26 14:35 | disposition home or self-care (01) | DRG 291 ==
LOC: ED 01:32 → 3A 12:01
PROVIDERS: ADMIT Internal Medicine; ATTEND Family Medicine
DX: I11.0 Hypertensive heart disease with heart failure (principal); G93.41 Metabolic encephalopathy; Z68.43 Body mass index [BMI] 50.0-59.9, adult; I50.43 Acute on chronic combined systolic (congestive) and diastolic (congestive) heart failure; I42.9 Cardiomyopathy, unspecified; E66.01 Morbid (severe) obesity due to excess calories; G43.909 Migraine, unspecified, not intractable, without status migrainosus; J45.909 Unspecified asthma, uncomplicated; F17.200 Nicotine dependence, unspecified, uncomplicated; M19.90 Unspecified osteoarthritis, unspecified site; E16.2 Hypoglycemia, unspecified; I25.10 Atherosclerotic heart disease of native coronary artery without angina pectoris; E78.5 Hyperlipidemia, unspecified; Z82.49 Family history of ischemic heart disease and other diseases of the circulatory system; Z86.73 Personal history of transient ischemic attack (TIA), and cerebral infarction without residual deficits; Z91.14 Patient's other noncompliance with medication regimen; Z88.6 Allergy status to analgesic agent; Z91.018 Allergy to other foods; Z71.6 Tobacco abuse counseling; Z71.89 Other specified counseling; Z71.3 Dietary counseling and surveillance
CPT/HCPCS: 36415; 71046; 80048; 80053; 80074; 80307; 82550; 82553; 83036; 83735; 83880; 84484; 84703; 85025; 85610; 85730; 87116; 93005; 93010; 96365; 96372; 99406; J1650; J1940

== ENCOUNTER 2019-07-16 20:43 | Emergency (ER) | payer MEDICAID ==
--- NOTE | 2019-07-16 20:58 | Event Note ---
ED Screening Note Date of service: 07/16/19 Time: 20:55 ED Screening Note: 53 y/o female comes in for cough and feeling like fluid is on lungs. Has a history of CHC times 2 weeks. This initial assessment/diagnostic orders/clinical plan/treatment(s) is/are subject to change based on patients health status, clinical progression and re- assessment by fellow clinical providers in the ED. Further treatment and workup at subsequent clinical providers discretion. Patient/guardian urged not to elope from the ED as their condition may be serious if not clinically assessed and managed. Initial orders include:
--- NOTE | 2019-07-16 21:21 | XRay Report ---
CHEST PA AND LATERAL VIEWS INDICATION: cough and sob. COMPARISON: 05/24/2018 FINDINGS: Support devices: None Heart: Mildly enlarged but unchanged Lungs/Pleura: Left hemidiaphragm is again slightly elevated. No pleural fluid. Mild interstitial lung disease is unchanged and thought to represent chronic interstitial fibrosis. No convincing evidence of pulmonary edema. IMPRESSION: 1. Mild stable cardiomegaly. No convincing evidence of pulmonary edema or acute pulmonary disease. Signer Name: Walter Oglesby MD Signed: 07/16/2019 9:17 PM Workstation Name: [id number]
[2019-07-16 21:27] LABS: Basophils # (Auto) 0.1 K/mm3 (0.0-0.1); Eosinophils # (Auto) 0.3 K/mm3 (0.0-0.4); Eosinophils % (Auto) 3.2 % (0.0-4.3); Hematocrit 35.5 % (30.3-42.9); Hemoglobin 11.6 gm/dl (10.1-14.3); Lymphocytes # (Auto) 3.2 K/mm3 (1.2-5.4); Lymphocytes % (Auto) 37.7 % (13.4-35.0); Mean Corpuscular HGB Conc 33 % (30-34); Mean Corpuscular Volume 80 fl (79-97); Monocytes # (Auto) 0.7 K/mm3 (0.0-0.8); Monocytes % (Auto) 8.8 % (0.0-7.3); Platelet Count 273 K/mm3 (140-440); Red Blood Count 4.46 M/mm3 (3.65-5.03); Red Cell Distribution Width 15.6 % (13.2-15.2)
[2019-07-16 21:52] LABS: Alanine Aminotransferase 9 units/L (7-56); Albumin 3.5 g/dL (3.9-5); BUN/Creatinine Ratio 16; Blood Urea Nitrogen 11 mg/dL (7-17); Calcium 9.5 mg/dL (8.4-10.2); Hemolysis Index 1
[2019-07-16] MEDS ORDERED: ATROVENT IH ONE (23:38)
[2019-07-16] MEDS ORDERED: PROVENTIL IH ONE (23:38)
[2019-07-16] MEDS ORDERED: TESSALON PERLES PO ONE (23:39)
--- NOTE | 2019-07-17 00:02 | Emergency Department Report ---
HPI - General Chief Complaint: Dyspnea/Respdistress Time Seen by Provider: 07/16/19 20:55 - HPI HPI: Room 8 The patient is a 51-year-old female presenting with a chief complaint of cough. The patient's issues call for the past 3 weeks. Patient denies rhinorrhea and states she is uncertain if she's had a fever. The patient states yesterday she developed left-sided chest pain stabbing in nature radiating to the left upper extremity. Patient's chest pain was intermittent. Patient denies shortness of breath, nausea/vomiting or diaphoresis. Patient denies sick contacts. When asked how she is feeling currently the patient applies "I'm good right now." Patient states her last stress test occurred approximately 3-4 years ago and was normal. Location: [See above] Duration: [See above] Quality: [See above] Severity: [See above] Timing: [See above] Context: [See above] Modifying factors: [See above] Associated signs and symptoms: [see above] ED Past Medical Hx - Past Medical History Previous Medical History?: Yes Hx Hypertension: Yes Hx CVA: Yes (2016) Hx Congestive Heart Failure: Yes Hx Headaches / Migraines: Yes Hx Asthma: Yes Hx COPD: Yes Additional medical history: brain aneurysm x2 - Surgical History Past Surgical History?: Yes Hx Coronary Stent: Yes Additional Surgical History: thyroid removal, open heart sx 1972 for congenital heart disease - Family History Family history: no significant - Social History Smoking Status: Former Smoker (none 8 months) Substance Use Type: None (denies illicit drug use) - Medications Home Medications: Home Medications Medication Instructions Recorded Confirmed Last Taken Type ALBUTEROL Inhaler (OR & NICU) 2 puff IH QID PRN #1 device 05/26/18 Unknown Rx [ProAir HFA Inhaler] ALBUTEROL NEB's [Proventil 0.083% 2.5 mg IH Q4H PRN #100 nebu 05/26/18 Unknown Rx NEBS] Carvedilol [Coreg] 3.125 mg PO BID #60 tablet 05/26/18 Unknown Rx Clopidogrel [Plavix] 75 mg PO QDAY #30 tablet 05/26/18 Unknown Rx Furosemide [Lasix] 20 mg PO BID #60 tablet 05/26/18 Unknown Rx Losartan [Cozaar] 50 mg PO QDAY #30 tablet 05/26/18 Unknown Rx Metoprolol [Lopressor TAB] 50 mg PO BID #60 tablet 05/26/18 Unknown Rx Potassium Chloride 10 meq PO QDAY #30 capsule.er 05/26/18 Unknown Rx oxyCODONE /ACETAMINOPHEN [Percocet 1 tab PO Q6H PRN #20 tablet 05/26/18 Unknown Rx 5/325 mg] ALBUTEROL Inhaler (OR & NICU) 2 puff IH QID PRN #1 inhalation 07/17/19 Unknown Rx [Proair] Azithromycin [Zithromax Z-FANNIE] 0 mg PO DAILY #6 tab 07/17/19 Unknown Rx Benzonatate [Tessalon Perles] 100 mg PO Q8HR #30 capsule 07/17/19 Unknown Rx HYDROcodone/APAP 5-325 [[place] 1 each PO Q6HR PRN #10 tablet 07/17/19 Unknown Rx 5/325] ED Review of Systems ROS: Stated complaint: SHORTNESS OF BREATH Other details as noted in HPI Constitutional: denies: diaphoresis Eyes: denies: eye pain ENT: denies: throat pain Respiratory: cough. denies: shortness of breath Cardiovascular: chest pain Endocrine: no symptoms reported Gastrointestinal: denies: nausea, vomiting Genitourinary: denies: dysuria Musculoskeletal: denies: back pain Neurological: denies: headache Physical Exam - Physical Exam Vital Signs: Vital Signs 07/16/19 07/16/19 07/16/19 20:46 20:55 23:30 Temperature 99 F 99 F 98.6 F Pulse Rate 105 H 105 H 81 Respiratory 18 18 18 Rate Blood Pressure 162/98 Blood Pressure 162/98 126/81 [Right] O2 Sat by Pulse 97 97 95 Oximetry Physical Exam: GENERAL: The patient is well-developed well-nourished female lying on stretcher not appearing to be in acute distress. And exhibits occasional coughing HEENT: Normocephalic. Atraumatic. Extraocular motions are intact. Patient has moist mucous membranes. NECK: Supple. Trachea midline CHEST/LUNGS: Clear to auscultation. There is no respiratory distress noted. Occasional cough HEART/CARDIOVASCULAR: Regular. There is no tachycardia. There is no gallop rub or murmur. ABDOMEN: Abdomen is soft, nontender. Patient has normal bowel sounds. There is no abdominal distention. SKIN: There is no rash. There is no edema. There is no diaphoresis. NEURO: The patient is awake, alert, and oriented. The patient is cooperative. The patient has normal speech MUSCULOSKELETAL: There is no evidence of acute injury. ED Course Vital Signs 07/16/19 07/16/19 07/16/19 20:46 20:55 23:30 Temperature 99 F 99 F 98.6 F Pulse Rate 105 H 105 H 81 Respiratory 18 18 18 Rate Blood Pressure 162/98 Blood Pressure 162/98 126/81 [Right] O2 Sat by Pulse 97 97 95 Oximetry ED Medical Decision Making - Lab Data Result diagrams: 07/16/19 21:14 07/16/19 21:14 Laboratory Tests 07/16/19 07/16/19 07/17/19 21:14 21:14 02:07 WBC 8.5 RBC 4.46 Hgb 11.6 Hct 35.5 MCV 80 MCH 26 L MCHC 33 RDW 15.6 H Plt Count 273 Lymph % (Auto) 37.7 H Isabella % (Auto) 8.8 H Eos % (Auto) 3.2 Baso % (Auto) 1.0 Lymph # 3.2 Isabella # 0.7 Eos # 0.3 Baso # 0.1 Seg Neutrophils % 49.3 Seg Neutrophils # 4.2 Sodium 139 Potassium 4.0 Chloride 102.3 Carbon Dioxide 26 Anion Gap 15 BUN 11 Creatinine 0.7 Estimated GFR > 60 BUN/Creatinine Ratio 16 Glucose 102 H Calcium 9.5 Total Bilirubin 0.20 AST 11 ALT 9 Alkaline Phosphatase 91 Troponin T < 0.010 NT-Pro-B Natriuret Pep 89.40 Total Protein 7.8 Albumin 3.5 L Albumin/Globulin Ratio 0.8 - EKG Data -: EKG Interpreted by Me EKG shows normal: sinus rhythm Rate: normal - EKG Data When compared to previous EKG there are: previous EKG unavailable Interpretation: normal EKG - Radiology Data Radiology results: report reviewed (chest x-ray, CT chest), image reviewed (chest x-ray, CT chest) interpreted by me: Chest x-ray-no definite focal infiltrate, no pneumothorax [facility] [address] [place] [address] XRay Report Signed Patient: WILLA MARTINEZ MR#: [id number] 1 : 1965 Acct:[id number] Age/Sex: 53 / F ADM Date: 07/16/19 Loc: ED Attending Dr: Order ing Physician: AUBREY MONTILLA Date of Service: 07/16/19 Procedure(s): XR chest routine 2V Accession Number(s): [id number] cc: AUBREY MONTILLA Fluoro Time In Minutes: CHEST PA AND LATERAL VIEWS INDICATION: cough and sob. COMPARISON: 05/24/2018 FINDINGS: Support devices: None Heart: Mildly enlarged but unchanged Lungs/Pleura: Left hemidiaphragm is again slightly elevated. No pleural fluid. Mild interstitial lung disease is unchanged and thought to represent chronic interstitial fibrosis. No convincing evidence of pulmonary edema. IMPRESSION: 1. Mild stable cardiomegaly. No convincing evidence of pulmonary edema or acute pulmonary disease. Signer Name: Walter Oglesby MD Signed: 07/16/2019 9:17 PM Workstation Name: [id number] Transcribed By: TM Dictated By: Walter Oglesby MD Electronically Authenticated By: Walter Oglesby MD Signed Date/Time: 07/16/192116 DD/ 14 TD/TT: [facility] [address] [place] [address] Cat Scan Report Signed Patient: WILLA MARTINEZ MR#: [id number] 1 : 1965 Acc t:[id number] Age/Sex: 53 / F ADM Date: 07/16/19 Loc: ED Attending Dr: Ordering Physician: TAWNYA RAYMUNDO MD Date of Service: 07/16/19 Procedure(s): CT angio chest Accession Number(s): [id number] cc: TAWNYA RAYMUNDO MD CTA CHEST WITH IV CONTRAST INDICATION: shortness of breath, cough, left chest pain. CONTRAST: 100 cc Omnipaque 350 IV COMPARISON: Chest x-ray tonight Three-plane MIP reconstructions were produced. All CT scans at this location are performed using CT dose reduction for ALARA by means of automated exposure control. NOTE: Resolution is decreased and artifact is introduced by the patient's size. FINDINGS: Massive enlargement of the left lobe of the thyroid is seen with a lobular and mildly heterogenous appearance and substernal extension noted. Deviation of the midline structures to the right is seen. No other mediastinal masses seen. No hilar masses are noted. No significant axillary lesions are seen. Visualized portions of the upper abdomen show a small right renal cyst. Fatty infiltration of the liver is noted. Mild atelectasis or scarring is seen in the left base. No areas of consolidation are seen. Mild increase in interstitial markings is seen bilaterally, slightly more on the left than right, which could represent interstitial edema. Heart appears mildly enlarged. Mild ectasia of the ascending aorta is seen which includes the proximal arch. Mid ascending aortic diameter is 3.7 cm with the proximal arch diameter of 3.7 cm. Mid arch diameter is 2.9 cm and other portions of the aorta show no significant enlargement. No evidence of dissection is seen. Adequate opacification of the pulmonary arterial system was achieved. I do not see convincing evidence of pulmonary thromboembolism. IMPRESSION: 1. No significant acute abnormalities are seen. No evidence of pulmonary thromboembolism. 2. Massive enlargement of the left lobe of the thyroid. Clinical correlation and sonographic follow-up are suggested. 3. Mild cardiomegaly and possible mild interstitial pulmonary edema Signer Name: Papo Ayala MD Signed: 07/17/2019 12:55 AM Workstation Name: [id number] Transcribed By: GJ Dictated By: Papo Ayala MD Electronically Authenticated By: Papo Ayala MD Signed Date/Time: 07/17/1954 DD/ TD/TT: - Differential Diagnosis pneumonia, bronchitis, PE, pericarditis, pleurisy Critical care attestation.: If time is entered above; I have spent that time in minutes in the direct care of this critically ill patient, excluding procedure time. ED Disposition Clinical Impression: Bronchitis, Cough Disposition: DC-01 TO HOME OR SELFCARE Is pt being admited?: No Does the pt Need Aspirin: No Condition: Stable Instructions: Chronic Bronchitis (ED) Additional Instructions: Return to the emergency department should you develop worsening symptoms, inability to tolerate food or liquids, high fever or any other concerns Prescriptions: HYDROcodone/APAP 5-325 [[place] 5/325] 1 each PO Q6HR PRN #10 tablet PRN Reason: Pain ALBUTEROL Inhaler (OR & NICU) [Proair] 2 puff IH QID PRN #1 inhalation PRN Reason: Shortness Of Breath Benzonatate [Tessalon Perles] 100 mg PO Q8HR #30 capsule Azithromycin [Zithromax Z-FANNIE] 0 mg PO DAILY #6 tab Referrals: ERNESTINE WHITNEY MD [Primary Care Provider] - 3-5 Days Time of Disposition: 03:34
--- NOTE | 2019-07-17 00:59 | Cat Scan Report ---
CTA CHEST WITH IV CONTRAST INDICATION: shortness of breath, cough, left chest pain. CONTRAST: 100 cc Omnipaque 350 IV COMPARISON: Chest x-ray tonight Three-plane MIP reconstructions were produced. All CT scans at this location are performed using CT d ose reduction for ALARA by means of automated exposure control. NOTE: Resolution is decreased and artifact is introduced by the patient's size. FINDINGS: Massive enlargement of the left lobe of the thyroid is seen with a lobular and mildly heter ogenous appearance and substernal extension noted. Deviation of the midline structures to the right i s seen. No other mediastinal masses seen. No hilar masses are noted. No significant axillary lesions are seen. Visualized portions of the upper abdomen show a small right renal cyst. Fatty infiltration of the liver is noted. Mild atelectasis or scarring is seen in the left base. No areas of consolidati on are seen. Mild increase in interstitial markings is seen bilaterally, slightly more on the left th an right, which could represent interstitial edema. Heart appears mildly enlarged. Mild ectasia of the ascending aorta is seen which includes the proximal arch. Mid ascending aortic di ameter is 3.7 cm with the proximal arch diameter of 3.7 cm. Mid arch diameter is 2.9 cm and other por tions of the aorta show no significant enlargement. No evidence of dissection is seen. Adequate opacification of the pulmonary arterial system was achieved. I do not see convincing evidenc e of pulmonary thromboembolism. IMPRESSION: 1. No significant acute abnormalities are seen. No evidence of pulmonary thromboembolism. 2. Massive enlargement of the left lobe of the thyroid. Clinical correlation and sonographic follow-u p are suggested. 3. Mild cardiomegaly and possible mild interstitial pulmonary edema Signer Name: Papo Ayala MD Signed: 07/17/2019 12:55 AM Workstation Name: [id number]
[2019-07-17 03:55] VITALS: BP 136/88
== END 2019-07-17 03:50 | disposition home or self-care (01) ==
LOC: ED 20:43
DX: J45.909 Unspecified asthma, uncomplicated (principal); I11.0 Hypertensive heart disease with heart failure; I50.9 Heart failure, unspecified; I25.2 Old myocardial infarction; G43.909 Migraine, unspecified, not intractable, without status migrainosus; J44.9 Chronic obstructive pulmonary disease, unspecified; Z95.5 Presence of coronary angioplasty implant and graft; Z87.891 Personal history of nicotine dependence; Z88.6 Allergy status to analgesic agent; Z91.018 Allergy to other foods; Z79.899 Other long term (current) drug therapy
CPT/HCPCS: 36415; 71046; 71275; 80053; 83880; 84484; 85025; 93005; 93010; 94640; 99284; Q9967; 94644

== ENCOUNTER 2019-10-26 22:46 | Inpatient (IN) | payer MEDICAID ==
--- NOTE | 2019-10-26 23:56 | XRay Report ---
CHEST 1 VIEW INDICATION / CLINICAL INFORMATION: Chest Pain. COMPARISON: 07/16/2019 FINDINGS: SUPPORT DEVICES: None. HEART / MEDIASTINUM: Moderately enlarged but stable. LUNGS / PLEURA: There is now relatively extensive right lung consolidation especially in the right lo wer lobe. There is patchy density in the left lung also not seen previously. No edema or effusions. N o adenopathy seen. No pneumothorax. ADDITIONAL FINDINGS: No significant additional findings. IMPRESSION: 1 Bilateral pneumonia right greater than left. Signer Name: Alfred Orlando MD Signed: 10/26/2019 11:52 PM Workstation Name: [id number]
[2019-10-27 00:15] LABS: BUN/Creatinine Ratio 15; Blood Urea Nitrogen 12 mg/dL (7-17); Calcium 9.5 mg/dL (8.4-10.2); Hemolysis Index 9
--- NOTE | 2019-10-27 00:17 | Emergency Department Report ---
ED Shortness of Breath HPI - General Chief Complaint: Dyspnea/Respdistress Stated Complaint: VALENTE Time Seen by Provider: 10/27/19 00:05 Source: patient Mode of arrival: Ambulatory Limitations: No Limitations - History of Present Illness Initial Comments: Patient is 53 years old female with history of congestive heart failure, ejection fraction of 20%, COPD and hypertension. Patient presented to the ER complaining of shortness of breath, cough nonproductive, fever and chills for the last 5 days. Patient is also complaining about diffuse chest pain e specially when she cough. Patient denied any nausea or vomiting. MD Complaint: shortness of breath, cough, chest pain -: days(s) (5) Quality: dull Known History Of: congestive heart failure - Related Data Previous Rx's Medication Instructions Recorded Last Taken Type ALBUTEROL Inhaler (OR & NICU) 2 puff IH QID PRN #1 device 05/26/18 Unknown Rx [ProAir HFA Inhaler] ALBUTEROL NEB's [Proventil 0.083% 2.5 mg IH Q4H PRN #100 nebu 05/26/18 Unknown Rx NEBS] Clopidogrel [Plavix] 75 mg PO QDAY #30 tablet 05/26/18 Unknown Rx Furosemide [Lasix] 20 mg PO BID #60 tablet 05/26/18 Unknown Rx Losartan [Cozaar] 50 mg PO QDAY #30 tablet 05/26/18 Unknown Rx Metoprolol [Lopressor TAB] 50 mg PO BID #60 tablet 05/26/18 Unknown Rx Potassium Chloride 10 meq PO QDAY #30 capsule.er 05/26/18 Unknown Rx carvediloL [Coreg] 3.125 mg PO BID #60 tablet 05/26/18 Unknown Rx oxyCODONE /ACETAMINOPHEN [Percocet 1 tab PO Q6H PRN #20 tablet 05/26/18 Unknown Rx 5/325 mg] ALBUTEROL Inhaler (OR & NICU) 2 puff IH QID PRN #1 inhalation 07/17/19 Unknown Rx [Proair] Azithromycin [Zithromax Z-FANNIE] 0 mg PO DAILY #6 tab 07/17/19 Unknown Rx Benzonatate [Tessalon Perles] 100 mg PO Q8HR #30 capsule 07/17/19 Unknown Rx HYDROcodone/APAP 5-325 [[place] 1 each PO Q6HR PRN #10 tablet 07/17/19 Unknown Rx 5/325] Allergies Allergy/AdvReac Type Severity Reaction Status Date / Time aspirin Allergy Hives Verified 12/07/17 19:51 strawberry Allergy Swelling Verified 03/03/18 04:41 ED Review of Systems ROS: Stated complaint: VALENTE Other details as noted in HPI Comment: All other systems reviewed and negative Constitutional: chills, fever Respiratory: cough, orthopnea, shortness of breath, SOB with exertion, SOB at rest. denies: wheezing Cardiovascular: chest pain, dyspnea on exertion, orthopnea. denies: palpitations Gastrointestinal: denies: abdominal pain, nausea, vomiting Neurological: denies: headache, weakness, numbness, paresthesias, confusion, abnormal gait ED Past Medical Hx - Past Medical History Previous Medical History?: Yes Hx Hypertension: Yes Hx CVA: Yes (2015) Hx Heart Attack/AMI: No Hx Congestive Heart Failure: Yes Hx Diabetes: No Hx Deep Vein Thrombosis: No Hx Pulmonary Embolism: No Hx GERD: No Hx Liver Disease: No Hx Renal Disease: No Hx Sickle Cell Disease: No Hx Arthritis: No Hx Headaches / Migraines: Yes Hx Seizures: No Hx Kidney Stones: No Hx Psychiatric Treatment: No Hx Asthma: Yes Hx COPD: Yes Hx Tuberculosis: No Hx Dementia: No Hx HIV: No Additional medical history: brain aneurysm x2 - Surgical History Hx Coronary Stent: Yes Hx Open Heart Surgery: No Hx Pacemaker: No Hx Internal Defibrillator: No Hx Cholecystectomy: No Hx Appendectomy: No Hx Breast Surgery: No Additional Surgical History: thyroid removal, open heart sx 1971 for congenital heart disease - Social History Smoking Status: Never Smoker Substance Use Type: None - Medications Home Medications: Home Medications Medication Instructions Recorded Confirmed Last Taken Type ALBUTEROL Inhaler (OR & NICU) 2 puff IH QID PRN #1 device 05/26/18 Unknown Rx [ProAir HFA Inhaler] ALBUTEROL NEB's [Proventil 0.083% 2.5 mg IH Q4H PRN #100 nebu 05/26/18 Unknown Rx NEBS] Clopidogrel [Plavix] 75 mg PO QDAY #30 tablet 05/26/18 Unknown Rx Furosemide [Lasix] 20 mg PO BID #60 tablet 05/26/18 Unknown Rx Losartan [Cozaar] 50 mg PO QDAY #30 tablet 05/26/18 Unknown Rx Metoprolol [Lopressor TAB] 50 mg PO BID #60 tablet 05/26/18 Unknown Rx Potassium Chloride 10 meq PO QDAY #30 capsule.er 05/26/18 Unknown Rx carvediloL [Coreg] 3.125 mg PO BID #60 tablet 05/26/18 Unknown Rx oxyCODONE /ACETAMINOPHEN [Percocet 1 tab PO Q6H PRN #20 tablet 05/26/18 Unknown Rx 5/325 mg] ALBUTEROL Inhaler (OR & NICU) 2 puff IH QID PRN #1 inhalation 07/17/19 Unknown Rx [Proair] Azithromycin [Zithromax Z-FANNIE] 0 mg PO DAILY #6 tab 07/17/19 Unknown Rx Benzonatate [Tessalon Perles] 100 mg PO Q8HR #30 capsule 07/17/19 Unknown Rx HYDROcodone/APAP 5-325 [[place] 1 each PO Q6HR PRN #10 tablet 07/17/19 Unknown Rx 5/325] ED Physical Exam - General Limitations: No Limitations General appearance: alert, in distress (moderate respiratory distress) - Head Head exam: Present: atraumatic, normocephalic, normal inspection - Eye Eye exam: Present: normal appearance - ENT ENT exam: Present: normal exam, normal orophraynx, mucous membranes moist - Neck Neck exam: Present: normal inspection, full ROM. Absent: tenderness, meningismus, lymphadenopathy, thyromegaly - Respiratory Respiratory exam: Present: rales. Absent: wheezes, rhonchi, accessory muscle use, decreased breath sounds, prolonged expiratory - Cardiovascular Cardiovascular Exam: Present: tachycardia - GI/Abdominal GI/Abdominal exam: Present: soft, normal bowel sounds. Absent: distended, tenderness, guarding, rebound, rigid, organomegaly, mass, bruit, pulsatile mass, hernia - Extremities Exam Extremities exam: Present: normal inspection, full ROM, normal capillary refill, pedal edema. Absent: tenderness, calf tenderness - Back Exam Back exam: Present: normal inspection, full ROM. Absent: CVA tenderness (R), CVA tenderness (L) - Neurological Exam Neurological exam: Present: alert, oriented X3, CN II-XII intact, normal gait, reflexes normal. Absent: motor sensory deficit - Skin Skin exam: Present: warm, intact, normal color ED Course Vital Signs 10/26/19 10/27/19 23:10 00:19 Temperature 98.9 F Pulse Rate 109 H Respiratory 24 Rate Blood Pressure 158/97 132/76 O2 Sat by Pulse 93 Oximetry ED Medical Decision Making - Lab Data Result diagrams: 10/26/19 23:31 10/26/19 23:31 - EKG Data -: EKG Interpreted by Me EKG shows normal: sinus rhythm Rate: normal - EKG Data Interpretation: no acute changes - Radiology Data Radiology results: report reviewed - Medical Decision Making Patient is 53 years old female with history of congestive heart failure, ejection fraction of 20%, COPD and hypertension. Patient presented to the ER complaining of shortness of breath, cough nonproductive, fever and chills for the last 5 days. Patient is also complaining about diffuse chest pain especially when she cough. Patient denied any nausea or vomiting. Chest x-ray showed bilateral pneumonia. Patient received Levaquin 500 mg IV. Patient gently hydrated with 500 mL of normal saline. Patient discussed with Dr. Roberta Gonsalez, she agreed to admit the patient to medical service for further management. Critical care attestation.: If time is entered above; I have spent that time in minutes in the direct care of this critically ill patient, excluding procedure time. ED Disposition Clinical Impression: Bilateral pneumonia, Shortness of breath Disposition: [id number] OP ADMIT IP TO THIS HOSP Is pt being admited?: Yes Condition: Stable Instructions: Bacterial Pneumonia (ED)
[2019-10-27] MEDS ORDERED: SODIUM CHLORIDE 0.9% 500 ML 500 ML IV ONE (00:18)
[2019-10-27 00:44] LABS: Hematocrit 33.4 % (30.3-42.9); Hemoglobin 10.9 gm/dl (10.1-14.3); Mean Corpuscular HGB Conc 33 % (30-34); Mean Corpuscular Volume 80 fl (79-97); Platelet Count 264 K/mm3 (140-440); Red Blood Count 4.19 M/mm3 (3.65-5.03); Red Cell Distribution Width 15.7 % (13.2-15.2)
[2019-10-27 00:56] LABS: Alanine Aminotransferase 11 units/L (7-56); Albumin 3.8 g/dL (3.9-5)
--- NOTE | 2019-10-27 01:06 | Admit Criteria Form ---
Admission Criteria Met: Yes
[2019-10-27 01:09] LABS: Bilirubin,Direct < 0.2 mg/dL (0-0.2)
[2019-10-27 01:40] LABS: Basophils % (Manual) 0 % (0.0-1.8); Total Cells Counted 100
[2019-10-27 01:41] LABS: Platelet Estimate Consistent w Auto; Stomatocytes Few; Target Cells Few
[2019-10-27] MEDS ORDERED: ALBUTEROL 2.5 MG/3 ML NEBU IH PRN ×2 (01:43→15:48)
[2019-10-27] MEDS ORDERED: ACETAMINOPHEN 325 MG TAB PO PRN (01:43)
[2019-10-27] MEDS ORDERED: ONDANSETRON 4 MG/2 ML INJ IV PRN (01:43)
--- NOTE | 2019-10-27 02:09 | History and Physical Report ---
<GREGORY MENDEZ - Last Filed: 10/27/19 02:17> History of Present Illness Date of examination: 10/27/19 Date of admission: 10/27/19 Chief complaint: SOB History of present illness: 54-year-old -[place] female with history of hypertension, CHF with EF 20-25%, headaches, asthma/COPD, and brain aneurysm 2 present status C ED with complaints of nonproductive cough, worsening shortness of breath, fever and chills for the past 4-5 days. Initially she thought that her heart failure was acting up but then her symptoms slightly improved over the weekend. However her symptoms return this time with no relief. She began experiencing pressure in the epi-gastric region. She states that her cough is intermittent and nonp roductive. Her shortness of breath has progressively worsened and she is on able so only flat. She tried nebulizer treatment with no relief. Patient states that she is compliant with medication, however today's ago she ran out of her Lasix. She decided to come into the ED for further evaluation and treatment. Admits fever and chills. Denies nausea, emesis, headache, hemoptysis, hematemesis, recent sick contact, her recent hospitalization. Past History Past Medical History: COPD (Asthma), heart failure (EF 20-25%), hypertension, migraines, other (brain aneurysm x2, ) Past Surgical History: Other (stent, thyroid removal, open heart sx 1971 for congenital heart disease) Social history: lives with family. denies: smoking Family history: no significant family history Medications and Allergies Allergies Allergy/AdvReac Type Severity Reaction Status Date / Time aspirin Allergy Hives Verified 12/07/17 19:51 strawberry Allergy Swelling Verified 03/03/18 04:41 Home Medications Medication Instructions Recorded Confirmed Last Taken Type ALBUTEROL Inhaler (OR & NICU) 2 puff IH QID PRN #1 device 05/26/18 10/27/19 Unknown Rx [ProAir HFA Inhaler] ALBUTEROL NEB's [Proventil 0.083% 2.5 mg IH Q4H PRN #100 nebu 05/26/18 10/27/19 Unknown Rx NEBS] Clopidogrel [Plavix] 75 mg PO QDAY #30 tablet 05/26/18 10/27/19 Unknown Rx Furosemide [Lasix] 20 mg PO BID #60 tablet 05/26/18 10/27/19 Unknown Rx Losartan [Cozaar] 50 mg PO QDAY #30 tablet 05/26/18 10/27/19 Unknown Rx Potassium Chloride 10 meq PO QDAY #30 capsule.er 05/26/18 10/27/19 Unknown Rx carvediloL [Coreg] 3.125 mg PO BID #60 tablet 05/26/18 10/27/19 Unknown Rx oxyCODONE /ACETAMINOPHEN [Percocet 1 tab PO Q6H PRN #20 tablet 05/26/18 10/27/19 Unknown Rx 5/325 mg] ALBUTEROL Inhaler (OR & NICU) 2 puff IH QID PRN #1 inhalation 07/17/19 10/27/19 Unknown Rx [ProAir HFA Inhaler] HYDROcodone/APAP 5-325 [[place] 1 each PO Q6HR PRN #10 tablet 07/17/19 10/27/19 1 Month Ago Rx 5-325 mg TAB] ~09/27/19 levoFLOXacin [Levaquin] 750 mg PO QDAY #4 tablet 10/28/19 Unknown Rx Active Meds: Active Medications Acetaminophen (Tylenol) 650 mg PO Q4H PRN PRN Reason: Pain MILD(1-3)/Fever >100.5/JIMENEZ Albuterol (Proventil) 2.5 mg IH Q3HRT PRN PRN Reason: Shortness Of Breath Carvedilol (Coreg) 3.125 mg PO BID [facility] Docusate Sodium (Colace) 100 mg PO BID [facility] Furosemide (Lasix) 20 mg PO BID [facility] Ceftriaxone Sodium (Rocephin/Ns 1 Gm/50 Ml) 1 gm in 50 mls @ 100 mls/hr IV Q24HR [facility]; Protocol Azithromycin 500 mg/ Sodium (Chloride) 250 mls @ 250 mls/hr IV Q24HR [facility]; Protocol Losartan Potassium (Cozaar) 50 mg PO QDAY [facility] Miscellaneous Medication (Potassium Chloride [Potassium Chloride]) 10 meq PO QDAY [facility] Ondansetron HCl (Zofran) 4 mg IV Q8H PRN PRN Reason: Nausea And Vomiting Sodium Chloride (Sodium Chloride Flush Syringe 10 Ml) 10 ml IV BID [facility] Sodium Chloride (Sodium Chloride Flush Syringe 10 Ml) 10 ml IV PRN PRN PRN Reason: LINE FLUSH Review of Systems All systems: negative Constitutional: fever, chills Cardiovascular: shortness of breath, dyspnea on exertion, other (chest discomfort) Respiratory: cough (nonproductive), shortness of breath, dyspnea on exertion Exam - Physical Exam Narrative exam: Physical exam General appearance: Present: No acute distress, alert and oriented 3, obese, pleasant, adult female - EENT Eyes: Present: PERRL, EOM intact ENT: hearing intact, normal dentition - Neck Neck: Present: supple, normal ROM - Respiratory Respiratory effort: Non-labored, on supplemental oxygen Respiratory: scattered crackles - Cardiovascular Heart rate: 99 (bpm) Rhythm: Sinus rhythm Heart Sounds: Present: S1 & S2. Absent: rub, click - Extremities Extremities: no ischemia, pulses intact, - Peripheral Assessment Peripheral Pulses: within normal limits - Abdominal General gastrointestinal: soft, non-tender, normal bowel sounds - Integumentary Integumentary: Present: warm, dry - Musculoskeletal Musculoskeletal: Able to move all extremities -Neurological Neurological: CN II-XII intact - Psychiatric Psychiatric: Appropriate for situation ,cooperative - Constitutional Vitals: Temp Pulse Resp BP Pulse Ox 98.9 F 99 H 21 132/76 89 10/26/19 23:10 10/27/19 00:46 10/27/19 01:06 10/27/19 01:06 10/27/19 01:06 Results - Labs CBC & Chem 7: 10/26/19 23:31 10/26/19 23:31 Labs: Laboratory Last Values WBC 7.9 K/mm3 (4.5-11.0) 10/26/19 23:31 RBC 4.19 M/mm3 (3.65-5.03) 10/26/19 23:31 Hgb 10.9 gm/dl (10.1-14.3) 10/26/19 23:31 Hct 33.4 % (30.3-42.9) 10/26/19 23:31 MCV 80 fl (79-97) 10/26/19 23:31 MCH 26 pg (28-32) L 10/26/19 23:31 MCHC 33 % (30-34) 10/26/19 23:31 RDW 15.7 % (13.2-15.2) H 10/26/19 23:31 Plt Count 264 K/mm3 (140-440) 10/26/19 23:31 Lymph % (Auto) Not Reportable 10/26/ 23:31 Posey % (Auto) Not Reportable 10/26/ 23:31 Eos % (Auto) Not Reportable 10/26/ 23:31 Baso % (Auto) Not Reportable 10/26/ 23:31 Lymph # Not Reportable 10/26/ 23:31 Posey # Not Reportable 10/26/19 23:31 Eos # Not Reportable 10/26/19 23:31 Baso # Not Reportable 10/26/ 23:31 Add Manual Diff Complete 10/26/19 23:31 Total Counted 100 10/26/19 23:31 Seg Neutrophils % Not Reportable 10/26/19 23:31 Seg Neuts % (Manual) 49.0 % (40.0-70.0) 10/26/19 23:31 Band Neutrophils % 0 % 10/26/19 23:31 Lymphocytes % (Manual) 41.0 % (13.4-35.0) H 10/26/19 23:31 Reactive Lymphs % (Man) 0 % 10/26/19 23:31 Monocytes % (Manual) 8.0 % (0.0-7.3) H 10/26/19 23:31 Eosinophils % (Manual) 1.0 % (0.0-4.3) 10/26/19 23:31 Basophils % (Manual) 0 % (0.0-1.8) 10/26/19 23:31 Metamyelocytes % 1.0 % 10/26/19 23:31 Myelocytes % 0 % 10/26/19 23:31 Promyelocytes % 0 % 10/26/19 23:31 Blast Cells % 0 % 10/26/19 23:31 Nucleated RBC % Not Reportable 10/26/19 23:31 Seg Neutrophils # Not Reportable 10/26/19 23:31 Seg Neutrophils # Man 3.9 K/mm3 (1.8-7.7) 10/26/19 23:31 Band Neutrophils # 0.0 K/mm3 10/26/19 23:31 Lymphocytes # (Manual) 3.2 K/mm3 (1.2-5.4) 10/26/19 23:31 Abs React Lymphs (Man) 0.0 K/mm3 10/26/19 23:31 Monocytes # (Manual) 0.6 K/mm3 (0.0-0.8) 10/26/19 23:31 Eosinophils # (Manual) 0.1 K/mm3 (0.0-0.4) 10/26/19 23:31 Basophils # (Manual) 0.0 K/mm3 (0.0-0.1) 10/26/19 23:31 Metamyelocytes # 0.1 K/mm3 10/26/19 23:31 Myelocytes # 0.0 K/mm3 10/26/19 23:31 Promyelocytes # 0.0 K/mm3 10/26/19 23:31 Blast Cells # 0.0 K/mm3 10/26/19 23:31 WBC Morphology Not Reportable 10/26/19 23:31 Hypersegmented Neuts Not Reportable 10/26/19 23:31 Hyposegmented Neuts Not Reportable 10/26/19 23:31 Hypogranular Neuts Not Reportable 10/26/19 23:31 Smudge Cells Not Reportable 10/26/19 23:31 Toxic Granulation Not Reportable 10/26/19 23:31 Toxic Vacuolation Not Reportable 10/26/19 23:31 Dohle Bodies Not Reportable 10/26/19 23:31 Pelger-Huet Anomaly Not Reportable 10/26/19 23:31 Venkata Rods Not Reportable 10/26/19 23:31 Platelet Estimate Consistent w auto 10/26/19 23:31 Clumped Platelets Not Reportable 10/26/19 23:31 Plt Clumps, EDTA Not Reportable 10/26/19 23:31 Large Platelets Not Reportable 10/26/19 23:31 Giant Platelets Not Reportable 10/26/19 23:31 Platelet Satelliting Not Reportable 10/26/19 23:31 Plt Morphology Comment Not Reportable 10/26/19 23:31 RBC Morphology Not Reportable 10/26/19 23:31 Dimorphic RBCs Not Reportable 10/26/19 23:31 Polychromasia Not Reportable 10/26/19 23:31 Hypochromasia Not Reportable 10/26/19 23:31 Poikilocytosis Not Reportable 10/26/19 23:31 Anisocytosis Not Reportable 10/26/19 23:31 Microcytosis Not Reportable 10/26/19 23:31 Macrocytosis Not Reportable 10/26/19 23:31 Spherocytes Not Reportable 10/26/19 23:31 Pappenheimer Bodies Not Reportable 10/26/19 23:31 Sickle Cells Not Reportable 10/26/19 23:31 Target Cells Few 10/26/19 23:31 Tear Drop Cells Not Reportable 10/26/19 23:31 Ovalocytes Not Reportable 10/26/19 23:31 Stomatocytes Few 10/26/19 23:31 Helmet Cells Not Reportable 10/26/19 23:31 Tomas-Cushing Bodies Not Reportable 10/26/19 23:31 [place] Rings Not Reportable 10/26/19 23:31 Sandra Cells Not Reportable 10/26/19 23:31 Bite Cells Not Reportable 10/26/19 23:31 Crenated Cell Not Reportable 10/26/19 23:31 Elliptocytes Not Reportable 10/26/19 23:31 Acanthocytes (Spur) Not Reportable 10/26/19 23:31 Rouleaux Not Reportable 10/26/19 23:31 Hemoglobin C Crystals Not Reportable 10/26/19 23:31 Schistocytes Not Reportable 10/26/19 23:31 Malaria parasites Not Reportable 10/26/19 23:31 Jermaine Bodies Not Reportable 10/26/19 23:31 Hem Pathologist Commnt No 10/26/19 23:31 Sodium 145 mmol/L (137-145) 10/26/19 23:31 Potassium 4.1 mmol/L (3.6-5.0) 10/26/19 23:31 Chloride 107.3 mmol/L (98-107) H 10/26/19 23:31 Carbon Dioxide 25 mmol/L (22-30) 10/26/19 23:31 Anion Gap 17 mmol/L 10/26/19 23:31 BUN 12 mg/dL (7-17) 10/26/19 23:31 Creatinine 0.8 mg/dL (0.7-1.2) 10/26/19 23:31 Estimated GFR > 60 ml/min 10/26/19 23:31 BUN/Creatinine Ratio 15 % 10/26/19 23:31 Glucose 107 mg/dL (65-100) H 10/26/19 23:31 Calcium 9.5 mg/dL (8.4-10.2) 10/26/19 23:31 Total Bilirubin 0.30 mg/dL (0.1-1.2) 10/27/19 00:26 Direct Bilirubin < 0.2 mg/dL (0-0.2) 10/27/19 00:26 Indirect Bilirubin 0.1 mg/dL 10/27/19 00:26 AST 16 units/L (5-40) 10/27/19 00:26 ALT 11 units/L (7-56) 10/27/19 00:26 Alkaline Phosphatase 86 units/L (35-129) 10/27/19 00:26 Troponin T < 0.010 ng/mL (0.00-0.029) 10/26/19 23:31 Total Protein 7.2 g/dL (6.3-8.2) 10/27/19 00:26 Albumin 3.8 g/dL (3.9-5) L 10/27/19 00:26 Albumin/Globulin Ratio 1.1 % 10/27/19 00:26 - Imaging and Cardiology Imaging and Cardiology: CXR: FINDINGS: SUPPORT DEVICES: None. HEART / MEDIASTINUM: Moderately enlarged but stable. LUNGS / PLEURA: There is now relatively extensive right lung consolidation especially in the right lower lobe. There is patchy density in the left lung also not seen previously. No edema or effusions. No adenopathy seen. No pn eumothorax. ADDITIONAL FINDINGS: No significant additional findings. IMPRESSION: 1 Bilateral pneumonia right greater than left. Assessment and Plan Assessment and plan: 54-year-old -[place] female with history of hypertension, CHF with EF 20-25%, headaches, asthma/COPD, and brain aneurysm 2 presents to [facility] ED with complaints of nonproductive cough, worsening shortness of breath, fever and chills for the past 4-5 days. Pneumonia -CXR shows Bilateral pneumonia R>L -Blood Cultures pending -Start on IV Abx -Continue supportive care CHF -EF 20-25% -Continue po Lasix -Continue Plavix, NEERAJ, BB HTN -Monitor BP -Resume home hypertensive meds COPD -Albuterol prn DVT PPX -on Plavix and SCD's Advance Directives: No VTE prophylaxis?: Chemical Plan of care discussed with patient/family: Yes <DEBBI WEISS - Last Filed: 12/21/19 23:44> History of Present Illness Date of admission: 10/27/19 01:43 Medications and Allergies Active Meds: Active Medications Acetaminophen (Tylenol) 650 mg PO Q4H PRN PRN Reason: Pain MILD(1-3)/Fever >100.5/JIMENEZ Albuterol (Proventil) 2.5 mg IH Q3HRT PRN PRN Reason: Shortness Of Breath Carvedilol (Coreg) 3.125 mg PO BID [facility] Docusate Sodium (Colace) 100 mg PO BID [facility] Furosemide (Lasix) 20 mg PO BID [facility] Ceftriaxone Sodium (Rocephin/Ns 1 Gm/50 Ml) 1 gm in 50 mls @ 100 mls/hr IV Q24HR [facility]; Protocol Azithromycin 500 mg/ Sodium (Chloride) 250 mls @ 250 mls/hr IV Q24HR [facility]; Protocol Losartan Potassium (Cozaar) 50 mg PO QDAY [facility] Ondansetron HCl (Zofran) 4 mg IV Q8H PRN PRN Reason: Nausea And Vomiting Potassium Chloride (K-Dur) 10 meq PO QDAY [facility] Sodium Chloride (Sodium Chloride Flush Syringe 10 Ml) 10 ml IV BID [facility] Sodium Chloride (Sodium Chloride Flush Syringe 10 Ml) 10 ml IV PRN PRN PRN Reason: LINE FLUSH Exam - Constitutional Vitals: Temp Pulse Resp BP Pulse Ox 98.9 F 100 H 30 H 142/77 97 10/26/19 23:10 10/27/19 02:46 10/27/19 02:46 10/27/19 02:46 10/27/19 02:46 Results - Labs CBC & Chem 7: 10/28/19 06:01 10/28/19 06:01 Labs: Laboratory Last Values WBC 7.9 K/mm3 (4.5-11.0) 10/26/19 23:31 RBC 4.19 M/mm3 (3.65-5.03) 10/26/19 23:31 Hgb 10.9 gm/dl (10.1-14.3) 10/26/19 23:31 Hct 33.4 % (30.3-42.9) 10/26/19 23:31 MCV 80 fl (79-97) 10/26/19 23:31 MCH 26 pg (28-32) L 10/26/19 23:31 MCHC 33 % (30-34) 10/26/19 23:31 RDW 15.7 % (13.2-15.2) H 10/26/19 23:31 Plt Count 264 K/mm3 (140-440) 10/26/19 23:31 Lymph % (Auto) Not Reportable 10/26/19 23:31 Posey % (Auto) Not Reportable 10/26/19 23:31 Eos % (Auto) Not Reportable 10/26/19 23:31 Baso % (Auto) Not Reportable 10/26/19 23:31 Lymph # Not Reportable 10/26/19 23:31 Posey # Not Reportable 10/26/19 23:31 Eos # Not Reportable 10/26/19 23:31 Baso # Not Reportable 10/26/19 23:31 Add Manual Diff Complete 10/26/19 23:31 Total Counted 100 10/26/19 23:31 Seg Neutrophils % Not Reportable 10/26/19 23:31 Seg Neuts % (Manual) 49.0 % (40.0-70.0) 10/26/19 23:31 Band Neutrophils % 0 % 10/26/19 23:31 Lymphocytes % (Manual) 41.0 % (13.4-35.0) H 10/26/19 23:31 Reactive Lymphs % (Man) 0 % 10/26/19 23:31 Monocytes % (Manual) 8.0 % (0.0-7.3) H 10/26/19 23:31 Eosinophils % (Manual) 1.0 % (0.0-4.3) 10/26/19 23:31 Basophils % (Manual) 0 % (0.0-1.8) 10/26/19 23:31 Metamyelocytes % 1.0 % 10/26/19 23:31 Myelocytes % 0 % 10/26/19 23:31 Promyelocytes % 0 % 10/26/19 23:31 Blast Cells % 0 % 10/26/19 23:31 Nucleated RBC % Not Reportable 10/26/19 23:31 Seg Neutrophils # Not Reportable 10/26/19 23:31 Seg Neutrophils # Man 3.9 K/mm3 (1.8-7.7) 10/26/19 23:31 Band Neutrophils # 0.0 K/mm3 10/26/19 23:31 Lymphocytes # (Manual) 3.2 K/mm3 (1.2-5.4) 10/26/19 23:31 Abs React Lymphs (Man) 0.0 K/mm3 10/26/19 23:31 Monocytes # (Manual) 0.6 K/mm3 (0.0-0.8) 10/26/19 23:31 Eosinophils # (Manual) 0.1 K/mm3 (0.0-0.4) 10/26/19 23:31 Basophils # (Manual) 0.0 K/mm3 (0.0-0.1) 10/26/19 23:31 Metamyelocytes # 0.1 K/mm3 10/26/19 23:31 Myelocytes # 0.0 K/mm3 10/26/19 23:31 Promyelocytes # 0.0 K/mm3 10/26/19 23:31 Blast Cells # 0.0 K/mm3 10/26/19 23:31 WBC Morphology Not Reportable 10/26/19 23:31 Hypersegmented Neuts Not Reportable 10/26/19 23:31 Hyposegmented Neuts Not Reportable 10/26/19 23:31 Hypogranular Neuts Not Reportable 10/26/19 23:31 Smudge Cells Not Reportable 10/26/19 23:31 Toxic Granulation Not Reportable 10/26/19 23:31 Toxic Vacuolation Not Reportable 10/26/19 23:31 Dohle Bodies Not Reportable 10/26/19 23:31 Pelger-Huet Anomaly Not Reportable 10/26/19 23:31 Venkata Rods Not Reportable 10/26/19 23:31 Platelet Estimate Consistent w auto 10/26/19 23:31 Clumped Platelets Not Reportable 10/26/19 23:31 Plt Clumps, EDTA Not Reportable 10/26/19 23:31 Large Platelets Not Reportable 10/26/19 23:31 Giant Platelets Not Reportable 10/26/19 23:31 Platelet Satelliting Not Reportable 10/26/19 23:31 Plt Morphology Comment Not Reportable 10/26/19 23:31 RBC Morphology Not Reportable 10/26/19 23:31 Dimorphic RBCs Not Reportable 10/26/19 23:31 Polychromasia Not Reportable 10/26/19 23:31 Hypochromasia Not Reportable 10/26/19 23:31 Poikilocytosis Not Reportable 10/26/19 23:31 Anisocytosis Not Reportable 10/26/19 23:31 Microcytosis Not Reportable 10/26/19 23:31 Macrocytosis Not Reportable 10/26/19 23:31 Spherocytes Not Reportable 10/26/19 23:31 Pappenheimer Bodies Not Reportable 10/26/19 23:31 Sickle Cells Not Reportable 10/26/19 23:31 Target Cells Few 10/26/19 23:31 Tear Drop Cells Not Reportable 10/26/19 23:31 Ovalocytes Not Reportable 10/26/19 23:31 Stomatocytes Few 10/26/19 23:31 Helmet Cells Not Reportable 10/26/19 23:31 Tomas-Cushing Bodies Not Reportable 10/26/19 23:31 [place] Rings Not Reportable 10/26/19 23:31 [place] Cells Not Reportable 10/26/19 23:31 Bite Cells Not Reportable 10/26/19 23:31 Crenated Cell Not Reportable 10/26/19 23:31 Elliptocytes Not Reportable 10/26/19 23:31 Acanthocytes (Spur) Not Reportable 10/26/19 23:31 Rouleaux Not Reportable 10/26/19 23:31 Hemoglobin C Crystals Not Reportable 10/26/19 23:31 Schistocytes Not Reportable 10/26/19 23:31 Malaria parasites Not Reportable 10/26/19 23:31 Jermaine Bodies Not Reportable 10/26/19 23:31 Hem Pathologist Commnt No 10/26/19 23:31 Sodium 145 mmol/L (137-145) 10/26/19 23:31 Potassium 4.1 mmol/L (3.6-5.0) 10/26/19 23:31 Chloride 107.3 mmol/L (98-107) H 10/26/19 23:31 Carbon Dioxide 25 mmol/L (22-30) 10/26/19 23:31 Anion Gap 17 mmol/L 10/26/19 23:31 BUN 12 mg/dL (7-17) 10/26/19 23:31 Creatinine 0.8 mg/dL (0.7-1.2) 10/26/19 23:31 Estimated GFR > 60 ml/min 10/26/19 23:31 BUN/Creatinine Ratio 15 % 10/26/19 23:31 Glucose 107 mg/dL (65-100) H 10/26/19 23:31 Calcium 9.5 mg/dL (8.4-10.2) 10/26/19 23:31 Total Bilirubin 0.30 mg/dL (0.1-1.2) 10/27/19 00:26 Direct Bilirubin < 0.2 mg/dL (0-0.2) 10/27/19 00:26 Indirect Bilirubin 0.1 mg/dL 10/27/19 00:26 AST 16 units/L (5-40) 10/27/19 00:26 ALT 11 units/L (7-56) 10/27/19 00:26 Alkaline Phosphatase 86 units/L (35-129) 10/27/19 00:26 Troponin T < 0.010 ng/mL (0.00-0.029) 10/27/19 02:12 Total Protein 7.2 g/dL (6.3-8.2) 10/27/19 00:26 Albumin 3.8 g/dL (3.9-5) L 10/27/19 00:26 Albumin/Globulin Ratio 1.1 % 10/27/19 00:26 Assessment and Plan Assessment and plan: 53-year-old woman with a history of hypertension, coronary artery disease, hypertension, CHF comes emergency room with complaints of shortness of breath, nonproductive cough that started on Friday, symptoms worsened today. Also complaining of chest pain, tightness/someoneone sitting on her chest intermittently over 2 minutes. Agree with plan as stated above, in addition check cardiac enzymes, check stress test
[2019-10-27 06:05] LABS: Creatine Kinase MB 1.4 ng/mL (0.0-4.0)
[2019-10-27] MEDS ORDERED: REGADENOSON 0.4 MG/5 ML INJ IV ONE ×2 (07:31→07:39)
[2019-10-27 09:51] LABS: Creatine Kinase MB 1.5 ng/mL (0.0-4.0)
[2019-10-27] MEDS ORDERED: AZITHROMYCIN 500 MG in SODIUM CHLORIDE 0.9% 250ML 250 ML IV SCH (10:00)
[2019-10-27] MEDS: cefTRIAXone/NS 1 GM/50 ML 1 GM/50 ML BAG IV SCH (10:03)
[2019-10-27] MEDS: DOCUSATE SODIUM 100 MG CAP PO SCH ×2 (10:04→21:58)
[2019-10-27] MEDS: FUROSEMIDE 20 MG TAB PO SCH ×2 (10:04→21:58)
[2019-10-27] MEDS: POTASSIUM CHLORIDE ER 10 MEQ TAB PO SCH (10:04)
[2019-10-27] MEDS: carvediloL 3.125 MG TAB PO SCH ×2 (10:04→21:58)
[2019-10-27] MEDS: LOSARTAN 50 MG TAB PO SCH (10:04)
--- NOTE | 2019-10-27 15:48 | Progress Note ---
Assessment and Plan Pneumonia, community acquired with unspecified organism -CXR shows Bilateral pneumonia R>L -Blood Cultures pending -cont on IV Abx -Continue supportive care CHF, chronic, - appears compensated -EF 20-25% -Continue po Lasix - if worsen symptom then will change iv -Continue Plavix, NEERAJ, BB HTN, stable -Monitor BP -Resumed home hypertensive meds COPD with mild exacerbation likely from PNA -Albuterol prn, abx DVT PPX -on Plavix and SCD's Subjective Date of service: 10/27/19 Interval history: Patient seen and examined c/o SOB on exertion, denies chest pain c/o cough, no chest pain Objective - Constitutional Vitals: Vital Signs - 12hr 10/27/19 10/27/19 10/27/19 04:28 04:37 05:34 Temperature 98.3 F 98.3 F Pulse Rate 98 H 98 H Respiratory 18 18 Rate Blood Pressure 140/105 O2 Sat by Pulse 92 92 98 Oximetry 10/27/19 10/27/19 07:24 08:03 Temperature 97.5 F L Pulse Rate 98 H Respiratory 18 Rate Blood Pressure 148/84 O2 Sat by Pulse Oximetry General appearance: Present: no acute distress, obese (morbid) - EENT Eyes: PERRL, EOM intact ENT: hearing intact, clear oral mucosa Ears: bilateral: normal - Neck Neck: supple, normal ROM - Respiratory Respiratory effort: normal Respiratory: bilateral: rales - Cardiovascular Rhythm: regular Heart Sounds: Present: S1 & S2. Absent: gallop, rub Extremities: pulses intact, No edema, normal color, Full ROM - Gastrointestinal General gastrointestinal: Present: soft, non-tender, non-distended, normal bowel sounds - Integumentary Integumentary: clear, warm, dry - Musculoskeletal Musculoskeletal: 1, strength equal bilaterally - Neurologic Neurologic: moves all extremities - Psychiatric Psychiatric: memory intact, appropriate mood/affect, intact judgment & insight - Labs CBC & Chem 7: 10/28/19 06:01 10/28/19 06:01 Labs: Abnormal lab results 10/26/19 10/26/19 10/27/19 Range/Units 23:31 23:31 00:26 MCH 26 L (28-32) pg RDW 15.7 H (13.2-15.2) % Lymphocytes % (Manual) 41.0 H (13.4-35.0) % Monocytes % (Manual) 8.0 H (0.0-7.3) % Chloride 107.3 H (98-107) mmol/L Glucose 107 H (65-100) mg/dL Albumin 3.8 L (3.9-5) g/dL
[2019-10-28 06:13] LABS: Basophils % (Auto) 0.2 % (0.0-1.8); Eosinophils # (Auto) 0.1 K/mm3 (0.0-0.4); Eosinophils % (Auto) 2.7 % (0.0-4.3); Hematocrit 31.4 % (30.3-42.9); Hemoglobin 10.4 gm/dl (10.1-14.3); Lymphocytes # (Auto) 1.8 K/mm3 (1.2-5.4); Lymphocytes % (Auto) 32.1 % (13.4-35.0); Mean Corpuscular HGB Conc 33 % (30-34); Mean Corpuscular Volume 80 fl (79-97); Monocytes # (Auto) 0.4 K/mm3 (0.0-0.8); Monocytes % (Auto) 7.7 % (0.0-7.3); Platelet Count 228 K/mm3 (140-440); Red Blood Count 3.91 M/mm3 (3.65-5.03); Red Cell Distribution Width 15.6 % (13.2-15.2)
[2019-10-28 06:31] LABS: BUN/Creatinine Ratio 22; Blood Urea Nitrogen 11 mg/dL (7-17); Calcium 9.1 mg/dL (8.4-10.2); Hemolysis Index 2
[2019-10-28] MEDS: cefTRIAXone/NS 1 GM/50 ML 1 GM/50 ML BAG IV SCH (10:59)
[2019-10-28] MEDS: carvediloL 3.125 MG TAB PO SCH (11:00)
[2019-10-28] MEDS: POTASSIUM CHLORIDE ER 10 MEQ TAB PO SCH (11:00)
[2019-10-28] MEDS: DOCUSATE SODIUM 100 MG CAP PO SCH (11:00)
[2019-10-28] MEDS: FUROSEMIDE 20 MG TAB PO SCH (11:00)
[2019-10-28] MEDS: LOSARTAN 50 MG TAB PO SCH (11:03)
--- NOTE | 2019-10-28 17:21 | Discharge Summary ---
Providers - Providers Date of Admission: 10/27/19 01:43 Date of discharge: 10/28/19 Attending physician: BOGDAN TAVAREZ Primary care physician: CASH CHECKER Hospitalization Condition: Stable Hospital course: 54-year-old -[place] female with history of hypertension, CHF with EF 20-25%, headaches, asthma/COPD, and brain aneurysm 2 present status C ED with complaints of nonproductive cough, worsening shortness of breath, fever and chills for the past 4-5 days. Discharge diagnosis: Pneumonia, community acquired with unspecified organism -CXR shows Bilateral pneumonia R>L -Blood Cultures pending -cont on IV Abx -Continue supportive care CHF, chronic, - appears compensated -EF 20-25% -Continue po Lasix - if worsen symptom then will change iv -Continue Plavix, NEERAJ, BB HTN, stable -Monitor BP -Resumed home hypertensive meds COPD with mild exacerbation likely from PNA -Albuterol prn, abx Morbid obesity, wt reduction with diet as outpt per PCP DVT PPX -on Plavix and SCD's Disposition: DC- TO HOME OR SELFCARE Time spent for discharge: 34 minutes Core Measure Documentation - Palliative Care Palliative Care/ Comfort Measures: Not Applicable - Core Measures Any of the following diagnoses?: history only Exam - Physical Exam Narrative exam: General appearance: Present: no acute distress, obese (morbid) - EENT Eyes: PERRL, EOM intact ENT: hearing intact, clear oral mucosa Ears: bilateral: normal - Neck Neck: supple, normal ROM - Respiratory Respiratory effort: normal Respiratory: bilateral: normal - Cardiovascular Rhythm: regular Heart Sounds: Present: S1 & S2. Absent: gallop, rub Extremities: pulses intact, No edema, normal color, Full ROM - Gastrointestinal General gastrointestinal: Present: soft, non-tender, non-distended, normal bowel sounds - Integumentary Integumentary: clear, warm, dry - Musculoskeletal Musculoskeletal: 1, strength equal bilaterally - Neurologic Neurologic: moves all extremities - Psychiatric Psychiatric: memory intact, appropriate mood/affect, intact judgment & insight - Constitutional Vitals: Temp Pulse Resp BP Pulse Ox 98.3 F 79 20 129/77 97 10/28/19 13:04 10/28/19 13:04 10/28/19 13:04 10/28/19 13:04 10/28/19 13:04 Plan Activity: advance as tolerated Weight Bearing Status: Weight Bear as Tolerated Diet: low fat, low salt Prescriptions: levoFLOXacin [Levaquin] 750 mg PO QDAY #4 tablet
[2019-10-28 18:48] VITALS: BP 140/84
== END 2019-10-28 20:30 | disposition home or self-care (01) | DRG 190 ==
LOC: ED 22:46 → 4A 10-27 01:43
PROVIDERS: ADMIT Internal Medicine; ATTEND Internal Medicine
DX: J44.0 Chronic obstructive pulmonary disease with (acute) lower respiratory infection (principal); J18.9 Pneumonia, unspecified organism; J44.1 Chronic obstructive pulmonary disease with (acute) exacerbation; I50.22 Chronic systolic (congestive) heart failure; Z68.41 Body mass index [BMI] 40.0-44.9, adult; I11.0 Hypertensive heart disease with heart failure; G43.909 Migraine, unspecified, not intractable, without status migrainosus; E66.01 Morbid (severe) obesity due to excess calories; Z71.3 Dietary counseling and surveillance; Z88.6 Allergy status to analgesic agent; Z79.899 Other long term (current) drug therapy; Z95.5 Presence of coronary angioplasty implant and graft
CPT/HCPCS: 36415; 71045; 80048; 80076; 82550; 82553; 84484; 85007; 85025; 87040; 87116; 93005; 93010; G0378; J0456; J0696; J1956; J2785; J7040; J7050